=== PATIENT | female | born 1935 | race Caucasian/White ===

== ENCOUNTER 2022-09-30 15:44 | Emergency (ER) | payer OTHER, SELFPAY ==
[2022-09-30 16:17] VITALS: BP 138/72; PULSE 89; RESP 17; TEMP 36.6; O2SAT 97
--- NOTE | 2022-09-30 16:21 | PC.NURSE ---
called facility to relay that we do not start PICC lines in the ED. facility requesting peripheral access to finish IV medications.
--- NOTE | 2022-09-30 17:03 | ED.GENADULT ---
HPI - General Adult General Chief complaint: Unspecified Stated complaint: PICC line issues Time Seen by Provider: 09/30/22 15:46 History of Present Illness HPI narrative: Patient is an 87-year-old female who presents ER for a IV placement. It was reported by the [facility] the patient requires a PICC line. Patient is currently receiving some cefepime and vancomycin for bacteremia of clostridia that she had recently. Patient has no new fevers. There is no complaints other than that her current PICC line is not functioning. Upon arrival it appears patient actually just has a peripherally inserted IV in her right arm. Related Data Home Medications Medication Instructions Recorded Confirmed ferrous sulfate 325 mg PO BID 09/12/22 09/12/22 Adults Multivitamin 1 tablet PO DAILY 09/14/22 09/14/22 PreserVision AREDS 2 cap PO DAILY 09/14/22 09/14/22 Procardia XL 90 mg PO QHS 09/14/22 09/14/22 Synthroid 88 mcg PO DAILY 09/14/22 09/14/22 hydralazine 50 mg PO TID 09/14/22 09/14/22 losartan 100 mg PO DAILY 09/14/22 09/14/22 Allergies Allergy/AdvReac Type Severity Reaction Status Date / Time adhesive tape Allergy Itching Verified 09/11/22 20:05 bacitracin Allergy Unknown Verified 09/11/22 20:08 [From Neosporin ([id number])] codeine Allergy Anaphylaxis Verified 09/11/22 20:04 gabapentin Allergy Unknown Verified 09/11/22 20:06 levofloxacin [From Levaquin] Allergy Unknown Verified 09/11/22 20:07 neomycin Allergy Unknown Verified 09/11/22 20:08 [From Neosporin ([id number])] polymyxin B Allergy Unknown Verified 09/11/22 20:08 [From Neosporin ([id number])] Sulfa (Sulfonamide Allergy Unknown Verified 09/11/22 20:08 Antibiotics) Review of Systems Review of Systems: ROS unobtainable: Yes unobtainable due to mental status PMFSH Past Medical History Medical History (Updated 09/30/22 @ 17:08 by Dennis Connell MD) Bacteremia Dementia Fall Hypertension Hypothyroidism Intra-articular fracture of distal end of left radius with volar angulation with routine healing Nondisplaced fracture of pelvis Family History Family History (Updated 09/12/22 @ 00:50 by Briana Puckett RN) Other Unknown family medical history Social History Social History Smoking status: Never smoker Second hand tobacco smoke exposure: No Alcohol intake: never Substance use: never Substance use type: does not use Spiritual care concerns: Yes (Christian) Exam Narrative: GENERAL: Well-appearing, well-nourished, and in no acute distress. HEAD: Normocephalic, atraumatic. EYES: PERRL and EOMI. CHEST: Clear to auscultation. No respiratory distress. HEART: Regular rate and rhythm. Normal peripheral pulses. ABDOMEN: Soft, nontender, nondistended. EXTREMITIES: Normal range of motion. No edema. NEURO: Alert and oriented x2. PSYCH: Normal mood and affect. Course Course Emergency Course: A peripheral IV has been placed in the patient's right AC and she will be discharged back to her [facility]. They have been made aware that the ER does not place picklines and that they can contact a clinical service who can come to the [facility] and placed a IV if required. Vital Signs Vital signs: Vital Signs Temperature 97.8 F 09/30/22 16:17 Pulse Rate 89 09/30/22 16:17 Respiratory Rate 17 09/30/22 16:17 Blood Pressure 138/72 09/30/22 16:17 Pulse Oximetry 97 09/30/22 16:17 Oxygen Delivery Room Air 09/30/22 16:17 Temperature 97.8 F 09/30/22 16:17 Pulse Rate 89 09/30/22 16:17 Respiratory Rate 17 09/30/22 16:17 Blood Pressure 138/72 09/30/22 16:17 Pulse Oximetry 97 09/30/22 16:17 Oxygen Delivery Room Air 09/30/22 16:17 Medical Decision Making Vital Signs Vital Signs: Vital Signs Temperature 97.8 F 09/30/22 16:17 Pulse Rate 89 09/30/22 16:17 Respiratory Rate 17 09/30/22
[2022-09-30 18:55] VITALS: BP 142/85; PULSE 87; RESP 18; O2SAT 98
== END 2022-09-30 18:57 ==
LOC: ANHED 17:41
PROVIDERS: Emergency Provider Emergency Medicine; PCP Nurse Practitioner Family
DX: Z45.2 Encounter for adjustment and management of vascular access device (principal); R78.81 Bacteremia; B96.7 Clostridium perfringens [C. perfringens] as the cause of diseases classified elsewhere
CPT/HCPCS: 99281

== ENCOUNTER 2022-12-09 05:07 | Inpatient (IN) | payer MEDICARE, OTHER, SELFPAY ==
[2022-12-09] VITALS (7 sets, daily range): BP systolic 140–174; BP diastolic 58–90; PULSE 97–112; RESP 13–20; TEMP 36.2–37.4; O2SAT 97–100; BMI 26.9
--- NOTE | ~2022-12-09 | CT_ITS ---
Clinical Indication: Hemorrhage CT Scan of the Chest, Abdomen, and Pelvis without Contrast: Technique: Contiguous sections were acquired throughout the chest, abdomen, and pelvis without IV con trast administration. Dose reduction technique was used on this scan by utilizing automated exposure control and iterative reconstruction technique. The dose-length product (DLP) was 1118.45 mGy-cm. Findings: There is no evidence of any significant mediastinal, hilar or axillary lymphadenopathy. The mediastin al soft tissues appear normal. No pericardial effusion. Probable minimal bilateral pleural effusions and minimal bibasilar atelectatic change. The liver, spleen, pancreas, and adrenal glands are within normal limits. Gallbladder is markedly dis tended, multiple gallstones, but no definite wall thickening or inflammatory change. Probable bilater al renal cysts present. There are atherosclerotic calcifications of the aorta. No lymphadenopathy. There is prominent stool at the rectum, suggestive of fecal impaction. There is additional moderate t o large amount stool throughout large bowel. No bowel obstruction. No abscess or free air evident. No evidence for intra-abdominal hemorrhage. Urinary bladder is unremarkable. No adnexal mass seen. No ascites. Impression: No intra-abdominal hemorrhage. Fecal impaction and constipation. Cholelithiasis and distended gallbladder. Minimal pleural effusions and minimal bibasilar atelectatic change. Reviewed, dictated and finalized at [facility]. Impression: No intra-abdominal hemorrhage. Fecal impaction and constipation. Cholelithiasis and distended gallbladder. Minimal pleural effusions and minimal bibasilar atelectatic change.
--- NOTE | ~2022-12-09 | XR_ITS ---
Portable chest x-ray Comparison: None Clinical History: Fever Findings: Lungs are clear, without focal consolidation or pleural effusion. Cardiomediastinal silho uette is stable. Right shoulder arthroplasty noted. Impression: Clear lungs. Reviewed, dictated and finalized at location . Impression: Clear lungs.
--- NOTE | ~2022-12-09 | CT_ITS ---
CT head without contrast Indication: Altered mental status Technique: Serial scans were obtained through the brain without the administration of contrast. Dose reduction technique was used on this scan by utilizing automated exposure control and iterative recon struction technique. The dose-length product (DLP) was 605.33 mGy-cm. Findings: There is no evidence of intracranial hemorrhage, mass lesion, or acute infarct. The ventri cles and subarachnoid spaces are dilated, consistent with mild atrophy. There is no evidence of darryn a, mass effect or midline shift. The visualized paranasal sinuses and mastoid air cells are clear. Impression: No intracranial hemorrhage, mass, or acute infarct. Mild generalized atrophy. Reviewed, dictated and finalized at location . Impression: No intracranial hemorrhage, mass, or acute infarct. Mild generalized atrophy.
--- NOTE | 2022-12-09 05:14 | ECG_ITS ---
Measurements Intervals [place] Rate: 103 P: 75 PA: 126 QRS: 52 QRSD: 81 T: 69 QT: 327 QTc: 429 Interpretive Statements SINUS TACHYCARDIA POSSIBLE LEFT ATRIAL ENLARGEMENT BASELINE ARTIFACT- I, II, III, AVR, AVL, AVF, V1-V6 BORDERLINE ECG NO PREVIOUS ECG AVAILABLE FOR COMPARISON Electronically Signed On 12-09-2022 6:38:58 CDT by Yair Richmond D.O.
--- NOTE | 2022-12-09 05:16 | ED.GENADULT ---
HPI - General Adult General Chief complaint: Recheck/Abnormal Lab/Rx Stated complaint: high blood pressure/Fever History of Present Illness HPI narrative: this is an 87-year-old female presenting to the ED from the care home for chief complaint of fever and elevated blood pressures. The patient herself is A&O x1-2. The care home states her blood pressure was 220/120 and had a temperature of 100.2? The patient says she has a small headache and some shortness of breath but no fever, coughs abdominal pain. Related Data Home Medications Medication Instructions Recorded Confirmed ferrous sulfate 325 mg PO BID 09/12/22 11/25/22 Adults Multivitamin 1 tablet PO DAILY 09/14/22 11/25/22 PreserVision AREDS 2 cap PO DAILY 09/14/22 11/25/22 Procardia XL 90 mg PO QHS 09/14/22 11/25/22 Synthroid 88 mcg PO DAILY 09/14/22 11/25/22 hydralazine 50 mg PO TID 09/14/22 11/25/22 losartan 100 mg PO DAILY 09/14/22 11/25/22 Allergies Allergy/AdvReac Type Severity Reaction Status Date / Time adhesive tape Allergy Itching Verified 12/09/22 06:17 bacitracin Allergy Unknown Verified 12/09/22 06:17 [From Neosporin ([id number])] codeine Allergy Anaphylaxis Verified 12/09/22 06:17 gabapentin Allergy Unknown Verified 12/09/22 06:17 levofloxacin [From Levaquin] Allergy Unknown Verified 12/09/22 06:17 neomycin Allergy Unknown Verified 12/09/22 06:17 [From Neosporin ([id number])] polymyxin B Allergy Unknown Verified 12/09/22 06:17 [From Neosporin ([id number])] Sulfa (Sulfonamide Allergy Unknown Verified 12/09/22 06:17 Antibiotics) PMFSH Past Medical History Medical History Bacteremia Dementia Fall Hypertension Hypothyroidism Intra-articular fracture of distal end of left radius with volar angulation with routine healing Nondisplaced fracture of pelvis Family History Family History Other Unknown family medical history Social History Social History Smoking status: Never smoker Second hand tobacco smoke exposure: No Alcohol intake: never Substance use: never Substance use type: does not use Spiritual care concerns: Yes (Hinduism) Exam Narrative: APPEARANCE: No apparent distress. A&O x1-2. Very hard of hearing. Head: atraumatic. EYES: EOMI, AMEE NOSE: Atraumatic NECK: Trachea midline RESPIRATORY: No increased rate of breathing , bibasilar crackles CARDIOVASCULAR: tachycardic, no peripheral edema ABDOMINAL: Non-distended, soft no guarding or rebound MUSCULOSKELETAl: No obvious deformities NEURO: Alert. moves 4 of 4 extremities SKIN:: stage I decubitus ulcer PSYCHIATRIC: Normal affect Course Vital Signs Vital signs: Vital Signs Temperature 98 F 12/09/22 05:09 Pulse Rate 112 H 12/09/22 05:09 Respiratory Rate 19 12/09/22 05:09 Blood Pressure 152/90 H 12/09/22 05:09 Pulse Oximetry 97 12/09/22 05:09 Temperature 98 F 12/09/22 05:09 Pulse Rate 112 H 12/09/22 05:09 Respiratory Rate 19 12/09/22 05:09 Blood Pressure 152/90 H 12/09/22 05:09 Pulse Oximetry 97 12/09/22 05:09 Medical Decision Making [facility] Narrative Medical decision making narrative: -Presentation: 87-year-old female presenting from the care home with reports of fever and elevated blood pressure. Patient feels warm to touch but is afebrile on oral. She is tachycardic and has poor baseline mental status not able to give us much information. Sepsis workup ordered -DDX includes but is not limited to: Sepsis, UTI, pneumonia, dehydration, bacteremia, intracranial hemorrhage, dementia, sundowning -Co-morbidities complicating care: dementia, anemia, hypothyroid, hypertension -Social determinants of health: care home resident -External Chart Review: review of care home paperwo
[2022-12-09 05:39] LABS: Appearance Urine Clear (Clear); Bilirubin Urine Negative (Negative); Blood Urine Trace-intact (Negative); Color Urine Yellow (Yellow); Glucose Urine UA Negative (Negative); Ketones Urine Negative (Negative); Leukocyte Esterase Ur 2+ LEU/UL (Negative); Nitrate Urine Positive (Negative); Protein Urine 1+ mg/dL (Negative); Specific Grav Ur 1.015 (1.001-1.035); Urobilinogen Urine 0.2 mg/dL (<2.0)
[2022-12-09 05:42] LABS: Bacteria Urine 4+ /hpf; Non Pathogenic Casts 0-2; RBC Urine 0-2 /hpf (0-2); Squamous Epithelial Cell Urine Occasional /hpf (Few); WBC Urine 51-100 /hpf
[2022-12-09 06:15] LABS: Add Urine Microscopic? YES
[2022-12-09 06:16] LABS: Influenza A QL RT-PCR Negative (Negative); Influenza B QL RT-PCR Negative (Negative); RSV RNA, RT-PCR Negative (Negative); SARS-CoV-2 RNA PCR Negative (Negative)
[2022-12-09] MEDS: SODIUM CHLORIDE 0.9% IV 1,000 ML 999 ML IV CONT (06:21)
[2022-12-09 06:26] LABS: Lactic Acid Reflex 1.2 mmol/L (0.7-2.0)
[2022-12-09 06:28] LABS: Alanine Aminotransferase 27 U/L (6-35); Albumin Level 3.3 g/dL (3.5-5.1); Alkaline Phosphatase 117 U/L (38-126); Anion Gap 8 mmol/L (8-16); Aspartate Amino Transferase 29 U/L (14-36); Bilirubin,Total 0.3 mg/dL (0.2-1.3); Blood Urea Nitrogen 45 mg/dL (7-17); Carbon Dioxide 23 mmol/L (22-30); Chloride 110 mmol/L (98-107); Creatine Kinase 42 U/L (30-135); Estimated CRCL calculation 21 ml/min; Estimated Glomerular Filt Rate 30; Glucose 104 mg/dL (65-110); Lipase 97 U/L (23-300); Phosphorus 3.6 mg/dL (2.5-4.5); Potassium 4.3 mmol/L (3.4-5.0); Prothrombin Time 13.5 Seconds (11.1-14.7); Sodium 141 mmol/L (137-145)
[2022-12-09 06:29] LABS: Partial Thromboplastin Time 32.4 SECONDS (22.3-36.8)
[2022-12-09 06:39] LABS: Troponin I 0.023 ng/mL (0.000-0.034)
[2022-12-09 06:40] LABS: NT Pro B Type Natriuretic Pept 800 pg/mL (19.9-100)
[2022-12-09 06:48] LABS: Basophils Percent Auto 0.4 % (0.2-1.2); Eosinophils Absolute Auto 0.2 K/mm3 (0-0.3); Eosinophils Percent Auto 2.1 % (0-4.4); Hematocrit 28.9 % (37.0-47.0); Immature Granulocyte Absolute 0.03 K/mm3 (0.00-0.031); Immature Granulocyte Percent A 0.3 % (0-0.5); Lymphocytes Absolute Auto 1.65 K/mm3 (0.9-3.2); Lymphocytes Percent Auto 17.1 % (18.3-44.2); Mean Corpuscular HGB Conc 31.1 g/dl (32-36); Mean Corpuscular Hemoglobin 30.4 pg (26-34); Mean Corpuscular Volume 97.6 fl (80-100); Mean Platelet Volume 9.9 fl (7.4-10.4); Monocytes Absolute Auto 0.7 K/mm3 (0.1-0.6); Monocytes Percent Auto 7.5 % (2.6-8.5); Neutrophils Percent Auto 72.6 % (45.5-73.1); Platelet Count Result 415 k/mm3 (150-375); Red Blood Count 2.96 M/mm3 (4.2-5.4); Red Cell Distribution Width 12.8 % (11.5-14.5); White Blood Count 9.7 K/mm3 (4.5-10.0)
[2022-12-09] MEDS: ERTAPENEM 1 GM/NS 50 ML 1 GM/50 ML BAG IVPB (07:31)
[2022-12-09 08:03] LABS: Free T4 Free Thyroxine Reflex 1.27 ng/dL (0.78-2.19)
--- NOTE | 2022-12-09 08:25 | ADMGEN ---
This patient, Alva Paulson, was admitted to [facility] Surg Room 332-02. Patient/family oriented to hospital policies and general routines including ID bracelet, bed and alarms, visiting hours, pain management, procedures, bathroom and other care routines, personal items, smoking policy, room service/diet, and visiting hours. Information on how to activate the Rapid Response Team has been discussed. Patient/Family are encouraged to report perceived risks to care and to ask questions if they do not understand what they are told or what they should do.
[2022-12-09 08:53] LABS: Total Triiodothyronine (T3) 1.06 NG/ML (0.97-1.69)
[2022-12-09 09:41] LABS: Troponin I 0.023 ng/mL (0.000-0.034)
[2022-12-09] MEDS: SILVERGEL (ELTA) 45 ML 1 APPLIC TOPICAL (13:48)
--- NOTE | 2022-12-09 14:31 | PM.IMHP ---
H&P: HPI History of Present Illness Date/Time: 12/09/22 14:35 Chief Complaint: Fever and high blood pressure. Narrative: This is an 87-year-old female with history of dementia, hypertension, hyperlipidemia, hypothyroidism, and ESBL E coli urinary tract infection who presented to the emergency department via EMS for evaluation of fever and high blood pressure. The patient is very hard of hearing but is able to provide a pretty good history. Some of the following is supplemented via a review of her EMR. This morning she spiked a temperature to 100.2? F and her blood pressure was reportedly 220/120 and she was sent in for evaluation. On arrival she reported having a mild headache and perhaps some shortness of breath but nothing significant. Blood pressures since arrival have been in the 150s to 160 systolic and she has been afebrile. She is tachycardic with heart rates in the low 100s. Pertinent labs include a WBC count of 9.7, hemoglobin 9.0, normal electrolytes, BUN 45, creatinine 1.60, lactic acid 1.2, proBNP 800, troponin 0.023. UA was positive for nitrates, 2+ leukocyte esterase, 4+ bacteria, and 51 to 100 WBC. She was negative for influenza, RSV, and COVID. Brain CT and chest x-ray did not show any acute findings. She was given a dose of ertapenem in the ED given reported history of ESBL E coli in the urine and she is being admitted in this setting. At the time my evaluation she is resting comfortably and watching television and has no complaints. Review of Systems Review of Systems: Reviewed and are negative. [facility] Past Medical History Medical History (Updated 12/09/22 @ 23:17 by Janelle Tatum PA-C) Arthritis Benign essential tremor Chronic anemia Chronic kidney disease Stage 3 to 4, baseline creatinine is about 1.60. Dementia History of ESBL E. coli infection Hyperlipidemia Hypertension Hypothyroidism Surgical History Surgical History (Updated 12/09/22 @ 14:36 by Janelle Tatum PA-C) History of arthroplasty of right shoulder History of tonsillectomy and adenoidectomy Family History Family History Father Cardiac abnormality Daughter Atrial fibrillation Social History Social History (Updated 12/09/22 @ 14:37 by Janelle Tatum PA-C) Social History: Healthcare power of cost estimating engineer: Eneida Conner, daughter. Code status: Full code. Smoking status: Never smoker Second hand tobacco smoke exposure: No Alcohol intake: never Substance use: never Substance use type: does not use Additional living arrangements comments: [facility]. Spiritual care concerns: No Meds Home Medications and Allergies Home Medications Medication Instructions Recorded Confirmed Type ferrous sulfate 325 mg PO BID 09/12/22 12/09/22 History Adults Multivitamin 1 tablet PO DAILY 09/14/22 12/09/22 History PreserVision AREDS 2 cap PO DAILY 09/14/22 12/09/22 History Procardia XL 90 mg PO DAILY 09/14/22 12/09/22 History Synthroid 88 mcg PO DAILY 09/14/22 12/09/22 History hydralazine 50 mg PO 08,,09/14/22 12/09/22 History losartan 100 mg PO DAILY 09/14/22 12/09/22 History acetaminophen 325 mg tablet (Mapap 650 mg PO Q6H PRN Mild Pain (1-3) 09/27/22 12/09/22 Rx (acetaminophen)) Or Fever #30 tabs docusate sodium 100 mg capsule 100 mg PO Q12HR #60 caps 09/27/22 12/09/22 Rx polyethylene glycol 3350 17 gram 17 g PO QAM PRN Constipation #100 09/27/22 12/09/22 Rx oral powder packet (Miralax) ea psyllium husk (with sugar) 3.4 1 packet PO Q12HR #60 ea 09/27/22 12/09/22 Rx gram oral powder packet (Metamucil (with sugar)) collagenase clostridium histo. 250 1 applic topical DAILY 12/09/22 12/09/22 History unit/gram topical ointment (Santyl) levothyroxine 88 mcg tablet 88 mcg PO WEEKLY 12/09/22 12/09/22 History (Synthroid) primidone 50 mg tablet 50 mg PO Q12H 12/09/22 12/09/22 History Allergies Allergy/AdvReac Type Severity
[2022-12-09] MEDS: SODIUM CHLORIDE 0.9% IV 500 ML 75 ML IV CONT (15:52)
[2022-12-09] MEDS: FERROUS SULFATE 324 MG TABLET PO (17:26)
[2022-12-09] MEDS: PRIMIDONE 50 MG TABLET PO (20:28)
[2022-12-09] MEDS: hydrALAZINE HCL 50 MG TABLET PO (20:28)
[2022-12-09] MEDS: PSYLLIUM POWDER PACKET 1 PACKET PO (20:28)
[2022-12-10] MEDS: LEVOTHYROXINE SODIUM 88 MCG TABLET PO (05:53)
[2022-12-10 06:00] VITALS: BP 141/79; PULSE 88; RESP 18; TEMP 35.8; O2SAT 96
[2022-12-10 06:13] LABS: Mean Corpuscular HGB Conc 30.8 g/dl (32-36); Mean Corpuscular Hemoglobin 30.4 pg (26-34); Mean Corpuscular Volume 98.9 fl (80-100); Mean Platelet Volume 9.8 fl (7.4-10.4); Platelet Count Result 365 k/mm3 (150-375); Red Blood Count 2.63 M/mm3 (4.2-5.4); Red Cell Distribution Width 12.8 % (11.5-14.5); White Blood Count 6.2 K/mm3 (4.5-10.0)
[2022-12-10] MEDS: hydrALAZINE HCL 50 MG TABLET PO ×3 (08:19→20:23)
[2022-12-10] MEDS: OPTI-GEN TAB 2 TABLET PO (08:19)
[2022-12-10] MEDS: FERROUS SULFATE 324 MG TABLET PO ×2 (08:19→17:40)
[2022-12-10] MEDS: NIFEdipine 30 MG TAB.ER.24 90 MG PO (08:19)
[2022-12-10] MEDS: PRIMIDONE 50 MG TABLET PO ×2 (08:19→20:22)
[2022-12-10] MEDS: MULTIVITAMINS THERAPEUTIC TAB (*BKC) 1 TABLET PO (08:19)
[2022-12-10] MEDS: LOSARTAN POTASSIUM 100 MG TABLET PO (08:19)
[2022-12-10] MEDS: PSYLLIUM POWDER PACKET 1 PACKET PO (08:20)
[2022-12-10] MEDS: ENOXAPARIN 30 MG/0.3 ML SYRINGE SUB-Q (08:20)
[2022-12-10] MEDS: SILVERGEL (ELTA) 45 ML 1 APPLIC TOPICAL (08:20)
[2022-12-10] MEDS: COLLAGENASE OINT 30 GM TUBE 1 APPLIC TOPICAL (08:59)
--- NOTE | 2022-12-10 09:55 | PM.IMPN ---
Progress Note: A&P Assessment and Plan (1) Fever: Code(s): R50.9 - Fever, unspecified Status: Acute (2) Urinary tract infection: Code(s): N39.0 - Urinary tract infection, site not specified Status: Acute (3) Chronic anemia: Code(s): D64.9 - Anemia, unspecified Status: Acute (4) Chronic kidney disease: Code(s): N18.9 - Chronic kidney disease, unspecified Status: Acute (5) Hypertension: Code(s): I10 - Essential (primary) hypertension Status: Acute (6) Hypothyroidism: Code(s): E03.9 - Hypothyroidism, unspecified Status: Acute (7) Dementia: Code(s): F03.90 - Unspecified dementia, unspecified severity, without behavioral disturbance, psychotic disturbance, mood disturbance, and anxiety Status: Acute Plan Sepsis The patient presented to the emergency department via EMS for evaluation of elevated blood pressure and fever as per HPI. Labs, imaging, EKG, and all reports were personally reviewed. She has been afebrile since arrival and her white blood cell count and lactic acid level are well within normal limits. Her urinalysis is abnormal and given her fever she has been started on empiric antibiotics. She has a history of E coli ESBL UTI and she received a dose of ertapenem in the ED. Started ceftriaxone, UTI UA shows pyuria Antibiotics see above Follow U? Chronic anemia and renal failure No obvious bleeding stable on review of previous labs. Blood pressures have been a bit elevated but not significantly so. Continue antihypertensives and monitor closely. TSH within normal limits. Bacteremia Blood culture positive for for Gram-positive cocci in cluster Add vancomycin IV, will deescalate based on the blood culture Repeat blood cultures again today Subjective Date/time seen: 12/10/22 09:55 Interval history: I saw on exam patient today, patient feels generally weak. Denies focal weakness. No new issue even overnight, blood culture grows Gram-positive cocci in cluster Exam Narrative: GENERAL: Pleasant, in no acute distress. Well-nourished. - EYES: EOMI. Anicteric. - HENT: Moist mucous membranes. - LUNGS: Clear to auscultation bilaterally, no wheezing, rhonchi, or rales. - CARDIOVASCULAR: Regular rate and rhythm. No murmur. No JVD. - ABDOMEN: Soft, non-tender and non-distended. No palpable masses. - EXTREMITIES: General weakness no edema. Peripheral pulses 2+. Non-tender. - NEUROLOGIC: No focal neurological deficits. CN II-XII grossly intact. - PSYCHIATRIC: Awake, Alert and oriented x 3. Appropriate mood and affect. - SKIN: No rashes or lesions. Warm. - LYMPH: No cervical lymphadenopathy. Objective Data Vital Signs Vital Signs: Vital Signs - 24 hr 12/09/22 14:00 12/09/22 20:00 12/09/22 22:00 Temperature 99.3 F 97.1 F L Pulse Rate 105 H 97 Respiratory Rate 16 20 Blood Pressure 143/72 H 140/58 L Pulse Oximetry 98 99 Oxygen Delivery Room Air 12/10/22 06:00 12/10/22 08:20 Temperature 96.4 F L Pulse Rate 88 Respiratory Rate 18 Blood Pressure 141/79 H Pulse Oximetry 96 Oxygen Delivery Room Air Intake/Output Intake/Output: Intake & Output 12/07/22 12/08/22 12/09/22 12/10/22 23:59 23:59 23:59 23:59 Intake Total 2210 Balance 2210 Meds/Results Medications: Active Medications Generic Name Dose Route Start Last Admin Trade Name Freq PRN Reason Stop Dose Admin Acetaminophen 650 mg 12/09/22 14:44 Acetaminophen 325 Mg Tablet PO Q6H PRN Mild Pain (1-3) or Fever Collagenase 1 applic 12/10/22 09:00 12/10/22 08:59 Collagenase Oint 30 Gm Tube TOPICAL 1 applic DAILY SOHAIL Administration Docusate Sodium 100 mg 12/09/22 21:00 12/10/22 08:13 Docusate Sodium 100 Mg Capsule PO Not Given Q12HR SOHAIL Enoxaparin Sodium 30 mg 12/10/22 09:00 12/10/22 08:20 Enoxaparin 30 Mg/0.3 Ml Syringe SUB-Q 30 mg DAILY SOHAIL Administration Ferrous
[2022-12-10] MEDS: VANCOMYCIN 1,000 MG/NS 250 ML 1,000 MG/250 ML BAG 250 MG IVPB (11:14)
[2022-12-10 11:40] LABS: Anion Gap 6 mmol/L (8-16); Blood Urea Nitrogen 38 mg/dL (7-17); Calcium 10.4 mg/dL (8.4-10.2); Carbon Dioxide 23 mmol/L (22-30); Chloride 110 mmol/L (98-107); Estimated CRCL calculation 26 ml/min; Estimated Glomerular Filt Rate 39; Glucose 95 mg/dL (65-110); Magnesium 1.9 mg/dL (1.6-2.3); Potassium 4.8 mmol/L (3.4-5.0); Sodium 139 mmol/L (137-145)
--- NOTE | 2022-12-10 13:24 | PC.NURSE ---
Pt is A&O1 female who has been resting for majority of the shift. Pt was compliant with medication. Medication is crushed and put in apple sauce or pudding. Pt had dressing changes done on heels and pt tolerated well. Pt had purewick placed to help prevent skin breakdown. Pt is a Q2 turn who tolerates repositioning well. Will continue to monitor pt.
[2022-12-10 14:00] VITALS: BP 137/60; PULSE 98; RESP 16; TEMP 36.7; O2SAT 99
[2022-12-10 20:00] VITALS: PULSE 109; RESP 20; O2SAT 96
[2022-12-10] MEDS: DOCUSATE SODIUM 100 MG CAPSULE PO (20:22)
[2022-12-10 20:24] VITALS: BP 129/65
[2022-12-10 21:25] VITALS: O2SAT 96
[2022-12-10 21:47] VITALS: BP 114/42; PULSE 109; RESP 20; TEMP 37.3; O2SAT 96
[2022-12-11] MEDS: LEVOTHYROXINE SODIUM 88 MCG TABLET PO (05:42)
[2022-12-11 06:00] VITALS: BP 140/79; PULSE 108; RESP 18; TEMP 37.1; O2SAT 99
[2022-12-11 06:40] LABS: Estimated CRCL calculation 26 ml/min; Estimated Glomerular Filt Rate 39
[2022-12-11 08:51] VITALS: PULSE 101; O2SAT 95
[2022-12-11] MEDS: PRIMIDONE 50 MG TABLET PO ×2 (09:04→20:09)
[2022-12-11] MEDS: OPTI-GEN TAB 2 TABLET PO (09:04)
[2022-12-11] MEDS: NIFEdipine 30 MG TAB.ER.24 90 MG PO (09:04)
[2022-12-11] MEDS: LOSARTAN POTASSIUM 100 MG TABLET PO (09:05)
[2022-12-11] MEDS: hydrALAZINE HCL 50 MG TABLET PO ×3 (09:05→20:09)
[2022-12-11] MEDS: MULTIVITAMINS THERAPEUTIC TAB (*BKC) 1 TABLET PO (09:05)
[2022-12-11] MEDS: FERROUS SULFATE 324 MG TABLET PO ×2 (09:05→16:31)
[2022-12-11] MEDS: ENOXAPARIN 30 MG/0.3 ML SYRINGE SUB-Q (09:05)
[2022-12-11] MEDS: PSYLLIUM POWDER PACKET 1 PACKET PO (09:05)
[2022-12-11] MEDS: COLLAGENASE OINT 30 GM TUBE 1 APPLIC TOPICAL (09:06)
[2022-12-11] MEDS: SILVERGEL (ELTA) 45 ML 1 APPLIC TOPICAL (09:06)
--- NOTE | 2022-12-11 13:19 | PC.NURSE ---
Pt is alert and oriented to self. Pt is resting in bed. Pt compliant with medication. Pt medications need to be crushed and given in applesauce or pudding. Pt compliant with turning and tolerates well. Pt expresses no needs and denies any pain when asked. Will continue to monitor pt.
[2022-12-11 14:00] VITALS: BP 132/56; PULSE 116; RESP 12; TEMP 36.7; O2SAT 98
--- NOTE | 2022-12-11 14:24 | PM.IMPN ---
Progress Note: A&P Assessment and Plan (1) Fever: Code(s): R50.9 - Fever, unspecified Status: Acute (2) Urinary tract infection: Code(s): N39.0 - Urinary tract infection, site not specified Status: Acute (3) Chronic anemia: Code(s): D64.9 - Anemia, unspecified Status: Acute (4) Chronic kidney disease: Code(s): N18.9 - Chronic kidney disease, unspecified Status: Acute (5) Hypertension: Code(s): I10 - Essential (primary) hypertension Status: Acute (6) Hypothyroidism: Code(s): E03.9 - Hypothyroidism, unspecified Status: Acute (7) Dementia: Code(s): F03.90 - Unspecified dementia, unspecified severity, without behavioral disturbance, psychotic disturbance, mood disturbance, and anxiety Status: Acute Plan Sepsis The patient presented to the emergency department via EMS for evaluation of elevated blood pressure and fever as per HPI. Labs, imaging, EKG, and all reports were personally reviewed. She has been afebrile since arrival and her white blood cell count and lactic acid level are well within normal limits. Her urinalysis is abnormal and given her fever she has been started on empiric antibiotics. She has a history of E coli ESBL UTI and she received a dose of ertapenem in the ED. Started ceftriaxone, UTI UA shows pyuria Antibiotics see above Urine culture is pending Chronic anemia and renal failure No obvious bleeding stable on review of previous labs. Blood pressures have been a bit elevated but not significantly so. Continue antihypertensives and monitor closely. TSH within normal limits. Bacteremia Blood culture positive for for Staphylococcus epidermidis and hominis Discontinue vancomycin IV, continue ceftriaxone Repeated blood cultures pending report Subjective Date/time seen: 12/11/22 14:24 Interval history: I saw on exam patient today, patient feels generally weak. Denies focal weakness. No new issue even overnight, blood culture grows Staphylococcus epidermidis and hominis. Patient is afebrile Exam Narrative: GENERAL: in no acute distress. Lethargic - EYES: EOMI. Anicteric. - HENT: Moist mucous membranes. - LUNGS: Clear to auscultation bilaterally, no wheezing, rhonchi, or rales. - CARDIOVASCULAR: Regular rate and rhythm. No murmur. No JVD. - ABDOMEN: Soft, non-tender and non-distended. No palpable masses. - EXTREMITIES: General weakness no edema. Peripheral pulses 2+. Non-tender. - NEUROLOGIC: No focal neurological deficits. CN II-XII grossly intact. - PSYCHIATRIC: Awake, Alert and oriented x 3. Appropriate mood and affect. - SKIN: No rashes or lesions. Warm. - LYMPH: No cervical lymphadenopathy. Objective Data Vital Signs Vital Signs: Vital Signs - 24 hr 12/10/22 20:24 12/10/22 21:47 12/10/22 20:00 Temperature 99.2 F Pulse Rate 109 H 109 H Respiratory Rate 20 20 Blood Pressure 129/65 114/42 L Pulse Oximetry 96 96 Oxygen Delivery Room Air 12/10/22 21:25 12/11/22 06:00 12/11/22 08:51 Temperature 98.8 F Pulse Rate 108 H 101 H Respiratory Rate 18 Blood Pressure 140/79 Pulse Oximetry 96 99 95 Oxygen Delivery Room Air Room Air 12/11/22 09:28 12/11/22 14:00 Temperature 98.0 F Pulse Rate 116 H Respiratory Rate 12 Blood Pressure 132/56 L Pulse Oximetry 98 Oxygen Delivery Room Air Intake/Output Intake/Output: Intake & Output 12/08/22 12/09/22 12/10/22 12/11/22 23:59 23:59 23:59 23:59 Intake Total 2210 1124 115 Output Total 450 500 Balance 2210 674 -385 Meds/Results Medications: Active Medications Generic Name Dose Route Start Last Admin Trade Name Freq PRN Reason Stop Dose Admin Acetaminophen 650 mg 12/09/22 14:44 Acetaminophen 325 Mg Tablet PO Q6H PRN Mild Pain (1-3) or Fever Collagenase 1 applic 12/10/22 09:00 12/11/22 09:06 Collagenase Oint 30 Gm Tube TOPICAL 1 applic DAILY [facility] Administratio
[2022-12-11] MEDS: ACETAMINOPHEN 325 MG TABLET 650 MG PO (17:44)
[2022-12-11] MEDS: DOCUSATE SODIUM 100 MG CAPSULE PO (20:09)
[2022-12-11 21:47] VITALS: BP 133/46; RESP 16; TEMP 36.8; O2SAT 97
[2022-12-12 05:58] VITALS: BP 137/58; PULSE 103; RESP 12; TEMP 36.8; O2SAT 97
[2022-12-12] MEDS: LEVOTHYROXINE SODIUM 88 MCG TABLET PO (06:04)
--- NOTE | 2022-12-12 09:36 | PCSTNOTE ---
Please refer to the Bedside Swallow Evaluation in the EMR. Please note, silent aspiration cannot be ruled out at bedside.
[2022-12-12] MEDS: FERROUS SULFATE LIQUID 325 MG/7.4 ML ELIXIR PO ×2 (09:43→17:42)
[2022-12-12] MEDS: hydrALAZINE HCL 50 MG TABLET PO ×3 (09:44→20:23)
[2022-12-12] MEDS: COLLAGENASE OINT 30 GM TUBE 1 APPLIC TOPICAL (09:45)
[2022-12-12] MEDS: DOCUSATE SODIUM LIQ 100 MG/10 ML UDC PO ×2 (09:45→20:23)
[2022-12-12] MEDS: amLODIPine BESYLATE 5 MG TABLET 10 MG PO (09:45)
[2022-12-12] MEDS: ENOXAPARIN 30 MG/0.3 ML SYRINGE SUB-Q (09:45)
[2022-12-12] MEDS: PSYLLIUM POWDER PACKET 1 PACKET PO ×2 (09:46→20:25)
[2022-12-12] MEDS: PRIMIDONE 50 MG TABLET PO ×2 (09:46→20:24)
[2022-12-12] MEDS: LOSARTAN POTASSIUM 100 MG TABLET PO (09:46)
[2022-12-12] MEDS: SILVERGEL (ELTA) 45 ML 1 APPLIC TOPICAL (09:46)
[2022-12-12] MEDS: MULTIVITAMINS THERAPEUTIC TAB (*BKC) 1 TABLET PO (09:46)
[2022-12-12] MEDS: OPTI-GEN TAB 2 TABLET PO (09:46)
[2022-12-12 11:00] LABS: Basophils Percent Auto 0.3 % (0.2-1.2); Eosinophils Absolute Auto 0.1 K/mm3 (0-0.3); Eosinophils Percent Auto 0.8 % (0-4.4); Hematocrit 25.9 % (37.0-47.0); Immature Granulocyte Absolute 0.04 K/mm3 (0.00-0.031); Immature Granulocyte Percent A 0.4 % (0-0.5); Lymphocytes Absolute Auto 1.14 K/mm3 (0.9-3.2); Lymphocytes Percent Auto 11.5 % (18.3-44.2); Mean Corpuscular HGB Conc 30.9 g/dl (32-36); Mean Corpuscular Hemoglobin 30.4 pg (26-34); Mean Corpuscular Volume 98.5 fl (80-100); Mean Platelet Volume 9.7 fl (7.4-10.4); Monocytes Absolute Auto 0.8 K/mm3 (0.1-0.6); Monocytes Percent Auto 8.1 % (2.6-8.5); Neutrophils Absolute Auto 7.8 K/mm3 (1.3-6.7); Neutrophils Percent Auto 78.9 % (45.5-73.1); Platelet Count Result 390 k/mm3 (150-375); Red Blood Count 2.63 M/mm3 (4.2-5.4); Red Cell Distribution Width 12.9 % (11.5-14.5); White Blood Count 9.9 K/mm3 (4.5-10.0)
[2022-12-12 11:28] LABS: Alanine Aminotransferase 52 U/L (6-35); Albumin Level 3.3 g/dL (3.5-5.1); Alkaline Phosphatase 105 U/L (38-126); Anion Gap 4 mmol/L (8-16); Aspartate Amino Transferase 48 U/L (14-36); Bilirubin,Total 0.2 mg/dL (0.2-1.3); Blood Urea Nitrogen 54 mg/dL (7-17); Carbon Dioxide 25 mmol/L (22-30); Chloride 105 mmol/L (98-107); Estimated CRCL calculation 24 ml/min; Estimated Glomerular Filt Rate 36; Glucose 128 mg/dL (65-110); Potassium 4.7 mmol/L (3.4-5.0); Sodium 134 mmol/L (137-145)
[2022-12-12 14:00] VITALS: BP 115/64; PULSE 112; RESP 14; TEMP 37.3; O2SAT 97
--- NOTE | 2022-12-12 14:36 | PM.IMPN ---
Progress Note: A&P Assessment and Plan (1) Fever: Code(s): R50.9 - Fever, unspecified Status: Acute (2) Urinary tract infection: Code(s): N39.0 - Urinary tract infection, site not specified Status: Acute (3) Chronic anemia: Code(s): D64.9 - Anemia, unspecified Status: Acute (4) Chronic kidney disease: Code(s): N18.9 - Chronic kidney disease, unspecified Status: Acute (5) Hypertension: Code(s): I10 - Essential (primary) hypertension Status: Acute (6) Hypothyroidism: Code(s): E03.9 - Hypothyroidism, unspecified Status: Acute (7) Dementia: Code(s): F03.90 - Unspecified dementia, unspecified severity, without behavioral disturbance, psychotic disturbance, mood disturbance, and anxiety Status: Acute Plan Sepsis The patient presented to the emergency department via EMS for evaluation of elevated blood pressure and fever as per HPI. Labs, imaging, EKG, and all reports were personally reviewed. She has been afebrile since arrival and her white blood cell count and lactic acid level are well within normal limits. Her urinalysis is abnormal and given her fever she has been started on empiric antibiotics. She has a history of E coli ESBL UTI and she received a dose of ertapenem in the ED. Started ceftriaxone, UTI UA shows pyuria Urine culture grows Klebsiella pneumoniae and E coli also susceptible to ceftriaxone Continue ceftriaxone IV Chronic anemia and renal failure No obvious bleeding stable on review of previous labs. Blood pressures have been a bit elevated but not significantly so. Continue antihypertensives and monitor closely. TSH within normal limits. Bacteremia Blood culture positive for for Staphylococcus epidermidis and hominis Discontinue vancomycin IV, continue ceftriaxone Repeated blood cultures no growth so far, pending final report Subjective Date/time seen: 12/12/22 14:36 Interval history: I saw on exam patient today, patient feels generally weak. Denies focal weakness. No new issue even overnight, Patient is afebrile. Per speech therapy's evaluation, patient is able to tolerate a pureed diet Exam Narrative: GENERAL: in no acute distress. Lethargic - EYES: EOMI. Anicteric. - HENT: Moist mucous membranes. - LUNGS: Clear to auscultation bilaterally, no wheezing, rhonchi, or rales. - CARDIOVASCULAR: Regular rate and rhythm. No murmur. No JVD. - ABDOMEN: Soft, non-tender and non-distended. No palpable masses. - EXTREMITIES: General weakness no edema. Peripheral pulses 2+. Non-tender. - NEUROLOGIC: No focal neurological deficits. CN II-XII grossly intact. - PSYCHIATRIC: Awake, Alert and not oriented to place and time, knows her son's name. Appropriate mood and affect. - SKIN: No rashes or lesions. Warm. - LYMPH: No cervical lymphadenopathy. Objective Data Vital Signs Vital Signs: Vital Signs - 24 hr 12/11/22 21:47 12/12/22 05:58 12/12/22 08:00 Temperature 98.3 F 98.3 F Pulse Rate 103 H Respiratory Rate 16 12 Blood Pressure 133/46 L 137/58 L Pulse Oximetry 97 97 Oxygen Delivery Room Air 12/12/22 14:00 Temperature 99.1 F Pulse Rate 112 H Respiratory Rate 14 Blood Pressure 115/64 Pulse Oximetry 97 Oxygen Delivery Intake/Output Intake/Output: Intake & Output 12/09/22 12/10/22 12/11/22 12/12/22 23:59 23:59 23:59 23:59 Intake Total 2210 1124 285 790 Output Total 450 1400 1200 Balance 2210 081 -9225 -968 Meds/Results Medications: Active Medications Generic Name Dose Route Start Last Admin Trade Name Ramiroq PRN Reason Stop Dose Admin Acetaminophen 650 mg 12/09/22 14:44 12/11/22 17:44 Acetaminophen 325 Mg Tablet PO 650 mg Q6H PRN Administration Mild Pain (1-3) or Fever Amlodipine Besylate 10 mg 12/12/22 09:00 12/12/22 09:45 Amlodipine Besylate 5 Mg Tablet PO 10 mg DAILY SOHAIL Administration Collagenase 1 applic 12/10/22 09:00 07
[2022-12-12 20:22] VITALS: BP 140/60
[2022-12-12 22:00] VITALS: BP 140/60; PULSE 118; RESP 16; TEMP 37.1; O2SAT 96
[2022-12-13] MEDS: LEVOTHYROXINE SODIUM 88 MCG TABLET PO (05:56)
[2022-12-13 06:00] VITALS: BP 142/63; PULSE 95; RESP 16; TEMP 36.9; O2SAT 99
[2022-12-13] MEDS: DOCUSATE SODIUM LIQ 100 MG/10 ML UDC PO ×2 (07:35→20:44)
[2022-12-13] MEDS: FERROUS SULFATE LIQUID 325 MG/7.4 ML ELIXIR PO ×2 (07:35→17:03)
[2022-12-13] MEDS: PSYLLIUM POWDER PACKET 1 PACKET PO ×2 (07:35→20:44)
[2022-12-13] MEDS: ENOXAPARIN 30 MG/0.3 ML SYRINGE SUB-Q (07:36)
[2022-12-13] MEDS: PRIMIDONE 50 MG TABLET PO ×2 (07:36→20:44)
[2022-12-13] MEDS: hydrALAZINE HCL 50 MG TABLET PO ×2 (07:36→20:44)
[2022-12-13] MEDS: ACETAMINOPHEN 325 MG TABLET 650 MG PO (07:36)
[2022-12-13] MEDS: LOSARTAN POTASSIUM 100 MG TABLET PO (07:36)
[2022-12-13] MEDS: MULTIVITAMINS THERAPEUTIC TAB (*BKC) 1 TABLET PO (07:37)
[2022-12-13] MEDS: OPTI-GEN TAB 2 TABLET PO (07:37)
[2022-12-13] MEDS: COLLAGENASE OINT 30 GM TUBE 1 APPLIC TOPICAL (07:37)
[2022-12-13] MEDS: amLODIPine BESYLATE 5 MG TABLET 10 MG PO (07:37)
[2022-12-13] MEDS: SILVERGEL (ELTA) 45 ML 1 APPLIC TOPICAL (07:37)
[2022-12-13] MEDS: DEXTROSE 5%/0.9% SOD CHL 1,000 ML 100 ML IV CONT ×2 (11:00→20:43)
[2022-12-13 11:29] LABS: Hematocrit 25.4 % (37.0-47.0); Hemoglobin 7.9 g/dL (12.0-15.0); Mean Corpuscular HGB Conc 31.1 g/dl (32-36); Mean Corpuscular Hemoglobin 30.9 pg (26-34); Mean Corpuscular Volume 99.2 fl (80-100); Mean Platelet Volume 9.8 fl (7.4-10.4); Platelet Count Result 403 k/mm3 (150-375); Red Blood Count 2.56 M/mm3 (4.2-5.4); Red Cell Distribution Width 12.9 % (11.5-14.5); White Blood Count 7.1 K/mm3 (4.5-10.0)
[2022-12-13 11:42] LABS: Anion Gap 3 mmol/L (8-16); Blood Urea Nitrogen 68 mg/dL (7-17); Calcium 11.3 mg/dL (8.4-10.2); Carbon Dioxide 27 mmol/L (22-30); Chloride 103 mmol/L (98-107); Estimated CRCL calculation 22 ml/min; Estimated Glomerular Filt Rate 33; Glucose 116 mg/dL (65-110); Potassium 4.6 mmol/L (3.4-5.0); Sodium 133 mmol/L (137-145)
--- NOTE | 2022-12-13 12:26 | PC.NURSE ---
Attempted to give pt hydralazine due at 1300 which is required to be crushed and spoon fed to pt. Pt refused to wake up. Pt would not open her eyes. Pt whispered no several times and turned her head away. Unable to administer the med.
[2022-12-13 14:00] VITALS: BP 122/52; PULSE 83; RESP 16; TEMP 36.2; O2SAT 97
--- NOTE | 2022-12-13 15:31 | PM.IMPN ---
Progress Note: A&P Assessment and Plan (1) Fever: Code(s): R50.9 - Fever, unspecified Status: Acute (2) Urinary tract infection: Code(s): N39.0 - Urinary tract infection, site not specified Status: Acute (3) Chronic anemia: Code(s): D64.9 - Anemia, unspecified Status: Acute (4) Chronic kidney disease: Code(s): N18.9 - Chronic kidney disease, unspecified Status: Acute (5) Hypertension: Code(s): I10 - Essential (primary) hypertension Status: Acute (6) Hypothyroidism: Code(s): E03.9 - Hypothyroidism, unspecified Status: Acute (7) Dementia: Code(s): F03.90 - Unspecified dementia, unspecified severity, without behavioral disturbance, psychotic disturbance, mood disturbance, and anxiety Status: Acute (8) Acute renal failure: Code(s): N17.9 - Acute kidney failure, unspecified Status: Acute Plan Sepsis The patient presented to the emergency department via EMS for evaluation of elevated blood pressure and fever as per HPI. Labs, imaging, EKG, and all reports were personally reviewed. She has been afebrile since arrival and her white blood cell count and lactic acid level are well within normal limits. Her urinalysis is abnormal and given her fever she has been started on empiric antibiotics. She has a history of E coli ESBL UTI and she received a dose of ertapenem in the ED. Started ceftriaxone, UTI UA shows pyuria Urine culture grows Klebsiella pneumoniae and E coli also susceptible to ceftriaxone Continue ceftriaxone IV Chronic anemia and renal failure No obvious bleeding stable on review of previous labs. Blood pressures have been a bit elevated but not significantly so. Continue antihypertensives and monitor closely. TSH within normal limits. SOLO on CKD Kidney function is worse Likely secondary to UR infection And per orally intake Continue antibiotics Start D5 group home g up are Follow-up BMP Bacteremia Blood culture positive for for Staphylococcus epidermidis and hominis Discontinue vancomycin IV, continue ceftriaxone Repeated blood cultures no growth so far, pending final report Subjective Date/time seen: 12/13/22 15:31 Interval history: I saw on exam patient today, patient feels generally weak. Patient is lethargic. No new issue even overnight, Patient is afebrile. Patient is a per orally intake, kidney function is worse Exam Narrative: GENERAL: in no acute distress. Lethargic - EYES: EOMI. Anicteric. - HENT: Moist mucous membranes. - LUNGS: Clear to auscultation bilaterally, no wheezing, rhonchi, or rales. - CARDIOVASCULAR: Regular rate and rhythm. No murmur. No JVD. - ABDOMEN: Soft, non-tender and non-distended. No palpable masses. - EXTREMITIES: General weakness no edema. Peripheral pulses 2+. Non-tender. - NEUROLOGIC: No focal neurological deficits. CN II-XII grossly intact. - PSYCHIATRIC: Awake, Alert and not oriented to place and time, knows her son's name. Appropriate mood and affect. - SKIN: No rashes or lesions. Warm. - LYMPH: No cervical lymphadenopathy. Objective Data Vital Signs Vital Signs: Vital Signs - 24 hr 12/12/22 20:22 12/12/22 22:00 12/13/22 06:00 Temperature 98.7 F 98.5 F Pulse Rate 118 H 95 Respiratory Rate 16 16 Blood Pressure 140/60 140/60 142/63 H Pulse Oximetry 96 99 Oxygen Delivery 12/13/22 08:00 12/13/22 14:00 Temperature 97.2 F L Pulse Rate 83 Respiratory Rate 16 Blood Pressure 122/52 L Pulse Oximetry 97 Oxygen Delivery Room Air Intake/Output Intake/Output: Intake & Output 12/10/22 12/11/22 12/12/22 12/13/22 23:59 23:59 23:59 23:59 Intake Total 9868 705 1998 640 Output Total 450 1400 5600 400 Balance 974 -0078 -225 240 Meds/Results Medications: Active Medications Generic Name Dose Route Start Last Admin Trade Name Ramiroq PRN Reason Stop Dose Admin Acetaminophen 650 mg 12/09/22 14:44 12/13/22 07
[2022-12-13 20:55] VITALS: BP 141/63; PULSE 101; RESP 12; TEMP 35.6; O2SAT 98
[2022-12-14] MEDS: DEXTROSE 5%/0.9% SOD CHL 1,000 ML 100 ML IV CONT ×2 (05:42→16:27)
[2022-12-14] MEDS: LEVOTHYROXINE SODIUM 88 MCG TABLET PO (05:43)
[2022-12-14 06:00] VITALS: BP 146/78; PULSE 92; RESP 18; TEMP 36.9; O2SAT 92
[2022-12-14 06:11] LABS: Hematocrit 22.8 % (37.0-47.0); Mean Corpuscular HGB Conc 30.3 g/dl (32-36); Mean Corpuscular Hemoglobin 30.7 pg (26-34); Mean Corpuscular Volume 101.3 fl (80-100); Mean Platelet Volume 10.1 fl (7.4-10.4); Platelet Count Result 367 k/mm3 (150-375); Red Blood Count 2.25 M/mm3 (4.2-5.4); Red Cell Distribution Width 12.7 % (11.5-14.5); White Blood Count 5.7 K/mm3 (4.5-10.0)
[2022-12-14 06:14] LABS: Hemoglobin 6.9 g/dL (12.0-15.0)
[2022-12-14 06:21] LABS: Anion Gap 2 mmol/L (8-16); Blood Urea Nitrogen 72 mg/dL (7-17); Calcium 10.5 mg/dL (8.4-10.2); Carbon Dioxide 26 mmol/L (22-30); Chloride 107 mmol/L (98-107); Estimated CRCL calculation 24 ml/min; Estimated Glomerular Filt Rate 36; Glucose 105 mg/dL (65-110); Potassium 4.3 mmol/L (3.4-5.0); Sodium 135 mmol/L (137-145)
--- NOTE | 2022-12-14 07:55 | PM.IMPN ---
Progress Note: A&P Assessment and Plan (1) Fever: Code(s): R50.9 - Fever, unspecified Status: Acute (2) Urinary tract infection: Code(s): N39.0 - Urinary tract infection, site not specified Status: Acute (3) Chronic anemia: Code(s): D64.9 - Anemia, unspecified Status: Acute (4) Chronic kidney disease: Code(s): N18.9 - Chronic kidney disease, unspecified Status: Acute (5) Hypertension: Code(s): I10 - Essential (primary) hypertension Status: Acute (6) Hypothyroidism: Code(s): E03.9 - Hypothyroidism, unspecified Status: Acute (7) Dementia: Code(s): F03.90 - Unspecified dementia, unspecified severity, without behavioral disturbance, psychotic disturbance, mood disturbance, and anxiety Status: Acute (8) Acute renal failure: Code(s): N17.9 - Acute kidney failure, unspecified Status: Acute (9) Fecal impaction: Code(s): K56.41 - Fecal impaction Status: Acute (10) Gallstone: Code(s): K80.20 - Calculus of gallbladder without cholecystitis without obstruction Status: Acute Plan Sepsis The patient presented to the emergency department via EMS for evaluation of elevated blood pressure and fever as per HPI. Labs, imaging, EKG, and all reports were personally reviewed. She has been afebrile since arrival and her white blood cell count and lactic acid level are well within normal limits. Her urinalysis is abnormal and given her fever she has been started on empiric antibiotics. She has a history of E coli ESBL UTI and she received a dose of ertapenem in the ED. Started ceftriaxone, UTI UA shows pyuria Urine culture grows Klebsiella pneumoniae and E coli also susceptible to ceftriaxone Continue ceftriaxone IV Chronic anemia and renal failure No obvious bleeding Repeated hemoglobin, hemoglobin close to baseline CT abdomen abdomen pelvis and does reveals intra-abdominal hematoma Follow-up CBC Blood pressures have been a bit elevated but not significantly so. Continue antihypertensives and monitor closely. TSH within normal limits. SOLO on CKD Kidney function is worse Likely secondary to UR infection And per orally intake Continue antibiotics Start [facility] g up are Follow-up BMP Bacteremia Blood culture positive for for Staphylococcus epidermidis and hominis Discontinue vancomycin IV, continue ceftriaxone Repeated blood cultures no growth so far, pending final report Fecal impaction and constipation Cannot provide GoLYTELY, patient has a trouble swallowing large fluid. Consult GI for evaluation for treatment Cholelithiasis and distended gallbladder May have acute cholecystitis. Patient is on ceftriaxone IV, add Flagyl Consult general surgeon for evaluation treatment Subjective Date/time seen: 12/14/22 07:55 Interval history: I saw on exam patient today, patient feels generally weak. Patient is lethargic. No new issue even overnight, Patient is afebrile. Patient has a poor intake, kidney function is worse. Has received fluid resuscitation, kidney function is improving, hemoglobin 6.9 in the morning, repeat hemoglobin 7.5, close to baseline. No obvious source of active bleeding Exam Narrative: GENERAL: in no acute distress. Lethargic - EYES: EOMI. Anicteric. - HENT: Moist mucous membranes. - LUNGS: Clear to auscultation bilaterally, no wheezing, rhonchi, or rales. - CARDIOVASCULAR: Regular rate and rhythm. No murmur. No JVD. - ABDOMEN: Soft, non-tender and non-distended. No palpable masses. - EXTREMITIES: General weakness no edema. Peripheral pulses 2+. Non-tender. - NEUROLOGIC: No focal neurological deficits. CN II-XII grossly intact. - PSYCHIATRIC: Awake, Alert and not oriented to place and time, knows her son's name. Appropriate mood and affect. - SKIN: No rashes or lesions. Warm. - LYMPH: No cervical lymphadenopathy. Objective Data Vital Signs Vital Signs:
[2022-12-14 08:22] LABS: Hematocrit 24.2 % (37.0-47.0); Hemoglobin 7.5 g/dL (12.0-15.0); Mean Corpuscular Hemoglobin 30.9 pg (26-34); Mean Corpuscular Volume 99.6 fl (80-100); Platelet Count Result 392 k/mm3 (150-375); Red Blood Count 2.43 M/mm3 (4.2-5.4); Red Cell Distribution Width 12.8 % (11.5-14.5); White Blood Count 5.9 K/mm3 (4.5-10.0)
[2022-12-14 08:32] LABS: Iron 49 ug/dL (37-170)
[2022-12-14 08:41] LABS: Percent Iron Saturation 25 % (20-50)
[2022-12-14] MEDS: ENOXAPARIN 30 MG/0.3 ML SYRINGE SUB-Q (09:10)
[2022-12-14] MEDS: DOCUSATE SODIUM LIQ 100 MG/10 ML UDC PO ×2 (09:10→20:40)
[2022-12-14] MEDS: FERROUS SULFATE LIQUID 325 MG/7.4 ML ELIXIR PO ×2 (09:10→16:28)
[2022-12-14] MEDS: PSYLLIUM POWDER PACKET 1 PACKET PO ×2 (09:10→20:40)
[2022-12-14] MEDS: LOSARTAN POTASSIUM 100 MG TABLET PO (09:11)
[2022-12-14] MEDS: COLLAGENASE OINT 30 GM TUBE 1 APPLIC TOPICAL (09:11)
[2022-12-14] MEDS: hydrALAZINE HCL 50 MG TABLET PO ×3 (09:11→20:40)
[2022-12-14] MEDS: SILVERGEL (ELTA) 45 ML 1 APPLIC TOPICAL (09:11)
[2022-12-14] MEDS: PRIMIDONE 50 MG TABLET PO ×2 (09:11→20:40)
[2022-12-14] MEDS: OPTI-GEN TAB 2 TABLET PO (09:11)
[2022-12-14] MEDS: MULTIVITAMINS THERAPEUTIC TAB (*BKC) 1 TABLET PO (09:11)
[2022-12-14] MEDS: amLODIPine BESYLATE 5 MG TABLET 10 MG PO (09:11)
[2022-12-14] MEDS: SODIUM CHLORIDE 0.9% IV 250 ML 30 ML IV CONT (09:12)
[2022-12-14 10:12] LABS: IFOB Positive Control Positive; Immunochemical Fecal Occult Bl Positive (N)
--- NOTE | 2022-12-14 11:12 | PCNFU ---
Nutrition Follow-Up Complete: Increased Protein needs as related to wounds as evidenced by unstageable pressure ulcer reported. Goal:Adequate Intake of at least 75% of meals/supplements Pt current nutrition is Heart healthy, pureed level 4, Ensure compact BID, SHARON BID. Nutrition recommendation: Encourage po intake Last recorded weight is 76.5 kg. Bowel Motility: + BM 12/14 Labs Reviewed: Hgb:7.5, HCT:24.2, NA:135, BUN:72, Cr:1.4 Meds Noted: lovenox, colace Skin: unstageable L heel, R heel Additional Notes: Pt continues on a pureed heart healthy diet, intake has been poor, but last meals charted are improved. Continue to encourage po intake of meals and supplements. RD will montior weight, labs, oral intake,skin every 5 days.
[2022-12-14 14:00] VITALS: BP 139/64; PULSE 98; RESP 12; TEMP 36.4; O2SAT 96
[2022-12-14] MEDS: metroNIDAZOLE 500 MG/ISO 100ML 500 MG/100 ML BAG 100 MG IVPB (16:27)
--- NOTE | 2022-12-14 18:31 | PC.NURSE ---
The UNIT REACTOR OPERATOR informed me that Pt's daughter, PARMINDER, was assisting with cleaning pt up from an incontinent BM when it became obvious that pt was impacted. Pt's daughter then proceed to insert her finger into pt's rectum and scoop the feces out. Pt's daughter did this several times eventually causing pt to begin to bleed. Pt's daughter stopped when pt began to bleed.
--- NOTE | 2022-12-14 18:33 | PC.NURSE ---
Pt's daughter/POA works for Dr. Palumbo and will be working out of the [facility] physician's office on 12/15/22 and requests that she be contacted when the GI consult and surgery consult see pt.
[2022-12-14] MEDS: MINERAL OIL 30 ML UDC 15 ML PO (20:39)
[2022-12-14 22:00] VITALS: BP 144/58; PULSE 92; RESP 12; TEMP 36.3; O2SAT 97
[2022-12-15] MEDS: metroNIDAZOLE 500 MG/ISO 100ML 500 MG/100 ML BAG 100 MG IVPB (00:30)
[2022-12-15] MEDS: DEXTROSE 5%/0.9% SOD CHL 1,000 ML 100 ML IV CONT (02:12)
[2022-12-15] MEDS: LEVOTHYROXINE SODIUM 88 MCG TABLET PO (05:59)
[2022-12-15 06:00] VITALS: BP 169/70; PULSE 89; RESP 20; TEMP 36.8; O2SAT 100
[2022-12-15 08:00] VITALS: O2SAT 96
[2022-12-15] MEDS: LOSARTAN POTASSIUM 100 MG TABLET PO (09:43)
[2022-12-15] MEDS: hydrALAZINE HCL 50 MG TABLET PO ×3 (09:43→20:54)
[2022-12-15] MEDS: OPTI-GEN TAB 2 TABLET PO (09:43)
[2022-12-15] MEDS: DOCUSATE SODIUM LIQ 100 MG/10 ML UDC PO ×2 (09:44→20:32)
[2022-12-15] MEDS: amLODIPine BESYLATE 5 MG TABLET 10 MG PO (09:44)
[2022-12-15] MEDS: FERROUS SULFATE LIQUID 325 MG/7.4 ML ELIXIR PO ×2 (09:44→17:20)
[2022-12-15] MEDS: PRIMIDONE 50 MG TABLET PO ×2 (09:44→20:34)
[2022-12-15] MEDS: MULTIVITAMINS THERAPEUTIC TAB (*BKC) 1 TABLET PO (09:44)
[2022-12-15] MEDS: ENOXAPARIN 30 MG/0.3 ML SYRINGE SUB-Q (09:45)
[2022-12-15] MEDS: PSYLLIUM POWDER PACKET 1 PACKET PO ×2 (09:45→20:33)
[2022-12-15] MEDS: COLLAGENASE OINT 30 GM TUBE 1 APPLIC TOPICAL (10:06)
[2022-12-15] MEDS: SILVERGEL (ELTA) 45 ML 1 APPLIC TOPICAL (10:06)
[2022-12-15] MEDS: MINERAL OIL 30 ML UDC 15 ML PO ×2 (12:10→20:32)
--- NOTE | 2022-12-15 13:19 | PM.IMPN ---
Progress Note: A&P Assessment and Plan (1) Fever: Code(s): R50.9 - Fever, unspecified Status: Acute (2) Urinary tract infection: Code(s): N39.0 - Urinary tract infection, site not specified Status: Acute (3) Chronic anemia: Code(s): D64.9 - Anemia, unspecified Status: Acute (4) Chronic kidney disease: Code(s): N18.9 - Chronic kidney disease, unspecified Status: Acute (5) Hypertension: Code(s): I10 - Essential (primary) hypertension Status: Acute (6) Hypothyroidism: Code(s): E03.9 - Hypothyroidism, unspecified Status: Acute (7) Dementia: Code(s): F03.90 - Unspecified dementia, unspecified severity, without behavioral disturbance, psychotic disturbance, mood disturbance, and anxiety Status: Acute (8) Acute renal failure: Code(s): N17.9 - Acute kidney failure, unspecified Status: Acute (9) Fecal impaction: Code(s): K56.41 - Fecal impaction Status: Acute (10) Gallstone: Code(s): K80.20 - Calculus of gallbladder without cholecystitis without obstruction Status: Acute Plan Sepsis The patient presented to the emergency department via EMS for evaluation of elevated blood pressure and fever as per HPI. Labs, imaging, EKG, and all reports were personally reviewed. She has been afebrile since arrival and her white blood cell count and lactic acid level are well within normal limits. Her urinalysis is abnormal and given her fever she has been started on empiric antibiotics. She has a history of E coli ESBL UTI and she received a dose of ertapenem in the ED. Started ceftriaxone, Metabolic encephalopathy Pt appears confused will continue to treat UTI and watch for improvement Pt may benefit from placement I will consult neurology for confusion UTI UA shows pyuria Urine culture grows Klebsiella pneumoniae and E coli also susceptible to ceftriaxone Continue ceftriaxone IV Chronic anemia and renal failure No obvious bleeding Repeated hemoglobin, hemoglobin close to baseline CT abdomen abdomen pelvis and does reveals intra-abdominal hematoma Follow-up CBC Blood pressures have been a bit elevated but not significantly so. Continue antihypertensives and monitor closely. TSH within normal limits. SOLO on CKD Kidney function is worse Likely secondary to UR infection And per orally intake Continue antibiotics Start [facility] g up are Follow-up BMP Bacteremia Blood culture positive for for Staphylococcus epidermidis and hominis Discontinue vancomycin IV, continue ceftriaxone Repeated blood cultures no growth so far, pending final report Fecal impaction and constipation Cannot provide GoLYTELY, patient has a trouble swallowing large fluid. Consult GI for evaluation for treatment Cholelithiasis and distended gallbladder May have acute cholecystitis. Patient is on ceftriaxone IV, add Flagyl Consult general surgeon for evaluation treatment Subjective Date/time seen: 12/15/22 13:19 Interval history: Pt admitted with uti and confusion Pt having fevers yesterday no fever today but still appears very confused Disoriented x3 Review of Systems Review of Systems: Confusion Exam Narrative: GENERAL: Confusion - HENT: Moist mucous membranes. - LUNGS: Clear to auscultation bilaterally, no wheezing, rhonchi, or rales. - CARDIOVASCULAR: Regular rate and rhythm. No murmur. No JVD. - ABDOMEN: Soft, non-tender and non-distended. No palpable masses. - EXTREMITIES: General weakness no edema. Peripheral pulses 2+. Non-tender. - NEUROLOGIC: No focal neurological deficits. CN II-XII grossly intact. - PSYCHIATRIC: Awake, Alert and not oriented to place and time, knows her son's name. Appropriate mood and affect. - SKIN: No rashes or lesions. Warm. - LYMPH: No cervical lymphadenopathy. Objective Data Vital Signs Vital Signs: Vital Signs - 24 hr 12/14/22 14:00 12/14/22
--- NOTE | 2022-12-15 13:33 | WPDGICN ---
Assessment and Plan Assessment and plan (1) Fecal impaction: Code(s): K56.41 - Fecal impaction Status: Acute Assessment and Plan: treated medically large amount of soft stool has been removed today, she is not impacted anymore continue with medical support, laxatives favor conservative given advanced age and comorbidities, no plan for colonoscopy unless any changes in condition (2) Urinary tract infection: Code(s): N39.0 - Urinary tract infection, site not specified Status: Acute Assessment and Plan: by primary (3) Chronic kidney disease: Code(s): N18.9 - Chronic kidney disease, unspecified Status: Acute (4) Chronic anemia: Code(s): D64.9 - Anemia, unspecified Status: Acute Assessment and Plan: brown stool, no signs of bleeding monitor (5) Gallstone: Code(s): K80.20 - Calculus of gallbladder without cholecystitis without obstruction Status: Acute Assessment and Plan: abdominal exam is benign monitor (6) Dementia: Code(s): F03.90 - Unspecified dementia, unspecified severity, without behavioral disturbance, psychotic disturbance, mood disturbance, and anxiety Status: Acute (7) Metabolic encephalopathy: Code(s): G93.41 - Metabolic encephalopathy Status: Acute Assessment and Plan: she is confused GI Consult Note Consult date/time: 12/15/22 13:33 Reason for consult: fecal impaction HPI: Alva Paulson is a 87 year old female with history of dementia, hypertension, CKD, and ESBL E coli urinary tract infection who presented to the emergency department via EMS for evaluation of fever and high blood pressure few days ago. The patient is very hard of hearing and also poor historian. She had CT scan- reviewed and showed No intra-abdominal hemorrhage. Fecal impaction and constipation. Cholelithiasis and distended gallbladder. She has been treated with laxatives and stool softeners, denies abdominal pain or nausea. She seems to be comfortable. 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 Dementia History of ESBL E. coli infection Hyperlipidemia Hypertension Hypothyroidism Metabolic encephalopathy Surgical History Surgical History (Updated 12/09/22 @ 14:36 by Janelle Tatum PA-C) History of arthroplasty of right shoulder History of tonsillectomy and adenoidectomy Family History Family History Father Cardiac abnormality Daughter Atrial fibrillation Social History Social History (Updated 12/09/22 @ 14:37 by Janelle Tatum PA-C) Social History: Healthcare power of commercial real estate attorney: Eneida Conner, daughter. Code status: Full code. Smoking status: Never smoker Second hand tobacco smoke exposure: No Alcohol intake: never Substance use: never Substance use type: does not use Additional living arrangements comments: [facility]. Spiritual care concerns: No Meds Home Medications and Allergies Home Medications Medication Instructions Recorded Confirmed Type ferrous sulfate 325 mg PO BID 09/12/22 12/09/22 History Adults Multivitamin 1 tablet PO DAILY 09/14/22 12/09/22 History PreserVision AREDS 2 cap PO DAILY 09/14/22 12/09/22 History Procardia XL 90 mg PO DAILY 09/14/22 12/09/22 History Synthroid
[2022-12-15 14:00] VITALS: BP 140/63; PULSE 104; RESP 18; TEMP 36.1; O2SAT 97
--- NOTE | 2022-12-15 16:47 | PM.CNGS ---
Assessment and Plan Assessment and plan (1) Abnormal computerized tomography of biliary tract: Code(s): R93.2 - Abnormal findings on diagnostic imaging of liver and biliary tract Status: Chronic Assessment and Plan: Gallstones and distended gallbladder but no signs of cholecystitis. Patient does seem to be eating adequate amounts. Clinically it does not appear she has cholecystitis either acute or chronic. Thank you for asking us to see this patient in consultation. (2) Fecal impaction: Code(s): K56.41 - Fecal impaction Status: Chronic Assessment and Plan: Had large bowel movement today. Has been on Metamucil mineral oil and MiraLax. Hopefully has resolved. (3) Urinary tract infection: Code(s): N39.0 - Urinary tract infection, site not specified Status: Acute Assessment and Plan: Klebsiella and E coli but no ESBL. (4) Dementia: Code(s): F03.90 - Unspecified dementia, unspecified severity, without behavioral disturbance, psychotic disturbance, mood disturbance, and anxiety Status: Chronic (5) Tremor: Code(s): R25.1 - Tremor, unspecified Status: Acute Assessment and Plan: Left arm tremor noted. Etiology not clear to me. History of Present Illness Consult details Consult date: 12/15/22 Reason for consult: gallstones Requesting physician: Triston Salazar MD Narrative: Patient is an 87-year-old woman with dementia and a history of ESBL UTI's. She came in 6 days ago with a low-grade fever, elevated blood pressure, and a slight headache. She was judged to have a urinary tract infection and urine cultures grew both Klebsiella and E coli but did not really show any resistant organisms. She had 1 set of blood cultures out of 2 that were positive. Interestingly these showed Staph hominis and Staph epidermidis. The blood cultures were positive in 1/2 that day and none were positive the following day. She was treated with antibiotics but had a low hemoglobin and hematocrit. CT scan of the chest abdomen and pelvis was done yesterday for the indication of hemorrhage. There was no sign of intra-abdominal bleeding but she did have a fecal impaction. She was also noted to have gallstones and a distended gallbladder. No thickened gallbladder wall or pericholecystic inflammatory changes or fluid were noted to suggest cholecystitis. Patient has been eating adequately about every other day. She is very hard of hearing. She tells me that her abdomen hurts in the umbilical area and has hurt while she has been here. It does not her while she is eating or after eating but she is just not very hungry. The mid abdominal pain is not severe. She is seen now in consultation regarding the abnormal CT scan of the gallbladder. Review of Systems Review of Systems: ROS unobtainable: Yes unobtainable due to medical condition (Dementia) [facility] Past Medical History Medical History Arthritis Benign essential tremor Chronic anemia Chronic kidney disease Stage 3 to 4, baseline creatinine is about 1.60. Dementia History of ESBL E. coli infection Hyperlipidemia Hypertension Hypothyroidism Metabolic encephalopathy Surgical History Surgical History History of arthroplasty of right shoulder History of tonsillectomy and adenoidectomy Family History Family History Father Cardiac abnormality Daughter Atrial fibrillation Social History Social History Social History: Healthcare power of state attorney: Eneida KhurramTerrell, daughter. Code status: Full code. Smoking status: Never smoker Second hand tobacco smoke exposure: No Alcohol intake: never Substance use: never Substance use type: does not use Additional living arrangements comments: [facility]
[2022-12-15] MEDS: AMOXICILLIN/CLAVULANATE K 500-125 MG TAB 1 TABLET PO (20:33)
[2022-12-15 21:00] VITALS: BP 132/59; PULSE 104; RESP 18; TEMP 37.1; O2SAT 96
[2022-12-16 04:37] VITALS: BP 158/72; PULSE 98; RESP 16; TEMP 36.6; O2SAT 95
[2022-12-16] MEDS: LEVOTHYROXINE SODIUM 88 MCG TABLET PO (05:28)
[2022-12-16 06:47] LABS: Hematocrit 25.1 % (37.0-47.0); Hemoglobin 7.8 g/dL (12.0-15.0); Mean Corpuscular HGB Conc 31.1 g/dl (32-36); Mean Corpuscular Hemoglobin 30.6 pg (26-34); Mean Corpuscular Volume 98.4 fl (80-100); Mean Platelet Volume 9.8 fl (7.4-10.4); Platelet Count Result 480 k/mm3 (150-375); Red Blood Count 2.55 M/mm3 (4.2-5.4); Red Cell Distribution Width 12.6 % (11.5-14.5); White Blood Count 5.8 K/mm3 (4.5-10.0)
[2022-12-16 06:53] LABS: Anion Gap -1 mmol/L (8-16); Blood Urea Nitrogen 58 mg/dL (7-17); Calcium 11.3 mg/dL (8.4-10.2); Carbon Dioxide 28 mmol/L (22-30); Chloride 107 mmol/L (98-107); Estimated CRCL calculation 28 ml/min; Estimated Glomerular Filt Rate 42; Glucose 90 mg/dL (65-110); Potassium 4.3 mmol/L (3.4-5.0); Sodium 134 mmol/L (137-145)
[2022-12-16] MEDS: MULTIVITAMINS THERAPEUTIC TAB (*BKC) 1 TABLET PO (09:14)
[2022-12-16] MEDS: OPTI-GEN TAB 2 TABLET PO (09:14)
[2022-12-16] MEDS: FERROUS SULFATE LIQUID 325 MG/7.4 ML ELIXIR PO ×2 (09:14→17:34)
[2022-12-16] MEDS: hydrALAZINE HCL 50 MG TABLET PO ×3 (09:15→21:29)
[2022-12-16] MEDS: PRIMIDONE 50 MG TABLET PO ×2 (09:15→21:29)
[2022-12-16] MEDS: amLODIPine BESYLATE 5 MG TABLET 10 MG PO (09:15)
--- NOTE | 2022-12-16 09:15 | PCPTNOTE ---
Pt is a long-term resident who is a opal lift/wheelchair bound (dependent) at baseline. Spoke with hospitalist who OK the DC of PT orders. RN aware.
[2022-12-16] MEDS: MINERAL OIL 30 ML UDC 15 ML PO ×2 (09:16→21:29)
[2022-12-16] MEDS: DOCUSATE SODIUM LIQ 100 MG/10 ML UDC PO ×2 (09:16→21:29)
[2022-12-16] MEDS: PSYLLIUM POWDER PACKET 1 PACKET PO ×2 (09:16→21:29)
[2022-12-16] MEDS: ENOXAPARIN 30 MG/0.3 ML SYRINGE SUB-Q (09:16)
[2022-12-16] MEDS: LOSARTAN POTASSIUM 100 MG TABLET PO (09:16)
[2022-12-16] MEDS: SILVERGEL (ELTA) 45 ML 1 APPLIC TOPICAL (09:17)
[2022-12-16] MEDS: COLLAGENASE OINT 30 GM TUBE 1 APPLIC TOPICAL (09:17)
[2022-12-16] MEDS: AMOXICILLIN/CLAVULANATE K 500-125 MG TAB 1 TABLET PO (09:19)
--- NOTE | 2022-12-16 11:05 | WPDNEURCNPN ---
Assessment and Plan Assessment and plan (1) Dementia: Qualifiers: Dementia type: Alzheimer's Code(s): F03.90 - Unspecified dementia, unspecified severity, without behavioral disturbance, psychotic disturbance, mood disturbance, and anxiety Status: Chronic Plan 1. Hypertension 2. UTI 3. Dementia 4. Treatment continued SI Consult date: 12/16/22 HPI: Alva Paulson is a 87 year old female admitted to the hospital through the emergency room where she was brought with complaints of fever and hypotension and was being awake alert and oriented only 1-2 times patient was transferred to the ER from the group home with information that her blood pressure was 220/120 and temp patient was 100.2 patient had been taking multiple. On initial evaluation in the emergency room she was found to have normal white loose signs was blood pressure 152/90 her routine labs were normal, and subsequently she has been documented to have anemia elevated BUN positive stool for occult blood and she was negative for influenza and RSV and SARS, x-ray chest was negative, CT scan of the head was negative and CT of the abdomen chest revealed only cholelithiasis and distended gallbladder, she is a never a smoker by history and never alcohol intake, she has been seen by the peoplesoft developer as well and general surgeon, patient carries the diagnosis of underlying dementia Review of Systems Review of Systems: All systems reviewed & are unremarkable except as noted in HPI and below PMFSH Past Medical History Medical History Arthritis Benign essential tremor Chronic anemia Chronic kidney disease Stage 3 to 4, baseline creatinine is about 1.60. Dementia History of ESBL E. coli infection Hyperlipidemia Hypertension Hypothyroidism Metabolic encephalopathy Surgical History Surgical History History of arthroplasty of right shoulder History of tonsillectomy and adenoidectomy Family History Family History Father Cardiac abnormality Daughter Atrial fibrillation Social History Social History Social History: Healthcare power of cook ice cream: Eneida Conner, daughter. Code status: Full code. Smoking status: Never smoker Second hand tobacco smoke exposure: No Alcohol intake: never Substance use: never Substance use type: does not use Additional living arrangements comments: [facility]. Spiritual care concerns: No Meds Home Medications and Allergies Home Medications Medication Instructions Recorded Confirmed Type ferrous sulfate 325 mg PO BID 09/12/22 12/09/22 History Adults Multivitamin 1 tablet PO DAILY 09/14/22 12/09/22 History PreserVision AREDS 2 cap PO DAILY 09/14/22 12/09/22 History Procardia XL 90 mg PO DAILY 09/14/22 12/09/22 History Synthroid 88 mcg PO DAILY 09/14/22 12/09/22 History hydralazine 50 mg PO 08,,09/14/22 12/09/22 History losartan 100 mg PO DAILY 09/14/22 12/09/22 History acetaminophen 325 mg tablet (Mapap 650 mg PO Q6H PRN Mild Pain (1-3) 09/27/22 12/09/22 Rx (acetaminophen)) Or Fever #30 tabs docusate sodium 100 mg capsule 100 mg PO Q12HR #60 caps 09/27/22 12/09/22 Rx polyethylene glycol 3350 17 gram 17 g PO QAM PRN Constipation #100 09/27/22 12/09/22 Rx oral powder packet (Miralax) ea psyllium husk (with sugar) 3.4 1 packet PO Q12HR #60 ea 09/27/22 12/09/22 Rx gram oral powder packet (Metamucil (with sugar)) collagenase clostridium histo. 250 1 applic topical DAILY 12/09/22 12/09/22 History unit/gram topical ointment (Santyl) levothyroxine 88 mcg tablet 88 mcg PO WEEKLY 12/09/22 12/09/22 History (Synthroid) primidone 50 mg tablet 50 mg PO Q12H 12/09/22 12/09/22 History Allergies Allergy/AdvReac Type Severity Reaction Status Date / Time ad
--- NOTE | 2022-12-16 12:59 | PM.IMPN ---
Progress Note: A&P Assessment and Plan (1) Abnormal computerized tomography of biliary tract: Code(s): R93.2 - Abnormal findings on diagnostic imaging of liver and biliary tract Status: Chronic (2) Metabolic encephalopathy: Code(s): G93.41 - Metabolic encephalopathy Status: Acute (3) Fecal impaction: Code(s): K56.41 - Fecal impaction Status: Chronic (4) Acute renal failure: Code(s): N17.9 - Acute kidney failure, unspecified Status: Acute (5) Hypothyroidism: Code(s): E03.9 - Hypothyroidism, unspecified Status: Acute (6) Dementia: Qualifiers: Dementia type: Alzheimer's Code(s): F03.90 - Unspecified dementia, unspecified severity, without behavioral disturbance, psychotic disturbance, mood disturbance, and anxiety Status: Chronic (7) Hypertension: Code(s): I10 - Essential (primary) hypertension Status: Acute (8) Urinary tract infection: Code(s): N39.0 - Urinary tract infection, site not specified Status: Acute (9) Chronic anemia: Code(s): D64.9 - Anemia, unspecified Status: Acute (10) Gallstone: Code(s): K80.20 - Calculus of gallbladder without cholecystitis without obstruction Status: Acute Plan Sepsis The patient presented to the emergency department via EMS for evaluation of elevated blood pressure and fever as per HPI. Labs, imaging, EKG, and all reports were personally reviewed. She has been afebrile since arrival and her white blood cell count and lactic acid level are well within normal limits. Her urinalysis is abnormal and given her fever she has been started on empiric antibiotics. She has a history of E coli ESBL UTI and she received a dose of ertapenem in the ED. Started ceftriaxone,Klebsiella and E coli but no ESBL. pt changed to oral ABX Metabolic encephalopathy Pt appears confused will continue to treat UTI and watch for improvement Pt may benefit from placement pt has underlying dementia UTI UA shows pyuria Urine culture grows Klebsiella pneumoniae and E coli also susceptible to ceftriaxone Continue ceftriaxone IV pt now changed to oral ABX Chronic anemia and renal failure No obvious bleeding Repeated hemoglobin, hemoglobin close to baseline CT abdomen abdomen pelvis and does reveals intra-abdominal hematoma Follow-up CBC Hb is 7 transfuse venofer x2 Blood pressures have been a bit elevated but not significantly so. Continue antihypertensives and monitor closely. TSH within normal limits. SOLO on CKD Kidney function is worse Likely secondary to UR infection And per orally intake Bacteremia Blood culture positive for for Staphylococcus epidermidis and hominis Discontinue vancomycin IV, continue ceftriaxone Repeated blood cultures no growth so far Fecal impaction and constipation Cannot provide GoLYTELY, patient has a trouble swallowing large fluid. Consult GI for evaluation for treatment, pt had bowel movement Cholelithiasis and distended gallbladder May have acute cholecystitis. not acute pt can be followed in surgery clinic later Subjective Date/time seen: 12/16/22 12:59 Interval history: Pt admitted with uti and confusion Pt still appears very confused likely due to dementia as per neurology note Disoriented x3 Pt had large bowel movement Pt is very anemic and sleepy today order venofer infusions x2 IV abx changed to oral Once medically stable DC back to [facility] hopefully in 1-2 days time PT seen by GI surgery and neurology in hospital Review of Systems Review of Systems: sleepy confused Exam Narrative: GENERAL: Confusion - HENT: Moist mucous membranes. - LUNGS: Clear to auscultation bilaterally, no wheezing, rhonchi, or rales. - CARDIOVASCULAR: Regular rate and rhythm. No murmur. No JVD. - ABDOMEN: Soft, non-tender and non-distended. No palpable masses. - EXTREMITIES: General weakness no ed
[2022-12-16 13:51] VITALS: BP 143/58; PULSE 102; RESP 20; TEMP 36.8; O2SAT 99
--- NOTE | 2022-12-16 15:03 | WPDGIPROGNO ---
Progress Note: A&P Assessment and Plan (1) Fecal impaction: Code(s): K56.41 - Fecal impaction Status: Chronic Assessment and Plan: resolved with medical treatment rectal exam was done yesterday and found large amount of soft stool that was removed and now she is having good BM will follow from afar (2) Metabolic encephalopathy: Code(s): G93.41 - Metabolic encephalopathy Status: Acute (3) Gallstone: Code(s): K80.20 - Calculus of gallbladder without cholecystitis without obstruction Status: Acute Assessment and Plan: no signs of cholecystitis (4) Dementia: Qualifiers: Dementia type: Alzheimer's Code(s): F03.90 - Unspecified dementia, unspecified severity, without behavioral disturbance, psychotic disturbance, mood disturbance, and anxiety Status: Chronic (5) Chronic kidney disease: Code(s): N18.9 - Chronic kidney disease, unspecified Status: Acute (6) Acute UTI: Code(s): N39.0 - Urinary tract infection, site not specified Status: Acute Assessment and Plan: on treatment Subjective Date/time seen: 12/16/22 15:03 Interval history: no changes per staff development coordinator, patient is resting comfortably. She had at least 3 BM today Review of Systems Review of Systems: All systems reviewed & are unremarkable except as noted in HPI and below Exam Const: General: comfortable and no acute distress Other: pleasant elderly, resting, confused HENMT: Face/Nose/Sinus: Normal nares present Eyes: General: appearance normal, both eyes and all related structures Neck: Neck: supple Resp: Auscultation: clear to auscultation bilaterally Cardio: Rate: regular rate Rhythm: regular rhythm GI: Inspection: non-distended GI Palp: Yes Soft to palpation and Yes Guarding due to palpation present (GI) Skin: General skin exam: normal color Neuro: Speech: normal speech Other: awake and alert, she is confused Extrem: General: normal to inspection Objective Data Vital Signs Vital Signs: Vital Signs - 24 hr 12/15/22 21:00 12/16/22 04:37 12/16/22 13:51 Temperature 98.7 F 97.9 F 98.2 F Pulse Rate 104 H 98 102 H Respiratory Rate 18 16 20 Blood Pressure 132/59 L 158/72 H 143/58 H Pulse Oximetry 96 95 99 Oxygen Delivery 12/16/22 08:00 Temperature Pulse Rate Respiratory Rate Blood Pressure Pulse Oximetry Oxygen Delivery Room Air Intake/Output Intake/Output: Intake & Output 12/13/22 12/14/22 12/15/22 12/16/22 23:59 23:59 23:59 23:59 Intake Total 2390 2150 4420 476 Output Total 900 1400 2500 800 Balance 2975 363 3123 -324 Meds/Results Medications: Active Medications Generic Name Dose Route Start Last Admin Trade Name Freq PRN Reason Stop Dose Admin Acetaminophen 650 mg 12/09/22 14:44 12/13/22 07:36 Acetaminophen 325 Mg Tablet PO 650 mg Q6H PRN Administration Mild Pain (1-3) or Fever Amlodipine Besylate 10 mg 12/12/22 09:00 12/16/22 09:15 Amlodipine Besylate 5 Mg Tablet PO 10 mg DAILY SOHAIL Administration Docusate Sodium 100 mg 12/12/22 09:00 12/16/22 09:16 Docusate Sodium Liq 100 Mg/10 Ml Udc PO 100 mg Q12HR SOHAIL Administration Enoxaparin Sodium 30 mg 12/10/22 09:00 12/16/22 09:16 Enoxaparin 30 Mg/0.3 Ml Syringe SUB-Q 30 mg DAILY SOHAIL Administration Ferrous Sulfate 325 mg 12/12/22 08:00 12/16/22 09:14 Ferrous Sulfate Liquid 325 Mg/7.4 Ml Elixir PO 325 mg BIDWM SOHAIL Administration Hydralazine HCl 50 mg 12/09/22 20:00 12/16/22 13:17 Hydralazine Hcl 50 Mg Tablet PO 01/08/23 19:59 50 mg 08,13,20 SOHAIL Administration Dextrose/Sodium Chloride 1,000 mls @ 100 mls/hr 12/13/22 10:50 12/15/22 12:50 Dextrose 5% Sodium Chloride 0.9% IV CONT Not Given .Q10H SOHAIL Iron Sucrose 100 mg/ Sodium 55 mls @ 220 mls/hr 12/17/22 09:00 Chloride IVPB 12/18/22 14:00 QAM SOHAIL Levothyroxine Sodium 88 mcg 12/10/22
[2022-12-16 20:00] VITALS: PULSE 100; RESP 18; O2SAT 96
[2022-12-16 20:59] VITALS: BP 130/81; PULSE 100; RESP 18; TEMP 37.6; O2SAT 96
[2022-12-17] MEDS: LEVOTHYROXINE SODIUM 88 MCG TABLET PO (05:37)
[2022-12-17 06:00] VITALS: BP 146/49; PULSE 85; RESP 18; TEMP 36.2; O2SAT 100
[2022-12-17] MEDS: DOCUSATE SODIUM LIQ 100 MG/10 ML UDC PO (09:14)
[2022-12-17] MEDS: MULTIVITAMINS THERAPEUTIC TAB (*BKC) 1 TABLET PO (09:14)
[2022-12-17] MEDS: amLODIPine BESYLATE 5 MG TABLET 10 MG PO (09:14)
[2022-12-17] MEDS: PRIMIDONE 50 MG TABLET PO (09:14)
[2022-12-17] MEDS: hydrALAZINE HCL 50 MG TABLET PO ×2 (09:14→13:32)
[2022-12-17] MEDS: FERROUS SULFATE LIQUID 325 MG/7.4 ML ELIXIR PO (09:15)
[2022-12-17] MEDS: LOSARTAN POTASSIUM 100 MG TABLET PO (09:15)
[2022-12-17] MEDS: MINERAL OIL 30 ML UDC 15 ML PO (09:15)
[2022-12-17] MEDS: PSYLLIUM POWDER PACKET 1 PACKET PO (09:15)
[2022-12-17] MEDS: ENOXAPARIN 30 MG/0.3 ML SYRINGE SUB-Q (09:15)
[2022-12-17] MEDS: OPTI-GEN TAB 2 TABLET PO (09:15)
[2022-12-17] MEDS: SILVERGEL (ELTA) 45 ML 1 APPLIC TOPICAL (09:28)
--- NOTE | 2022-12-17 10:59 | PM.DS ---
DS: Admitting Diagnosis Discharge Date 12/17/2022 Admitting Diagnosis UTI DS: Discharge Diagnosis Discharge Diagnosis (1) Metabolic encephalopathy: Code(s): G93.41 - Metabolic encephalopathy Status: Acute (2) Acute renal failure: Code(s): N17.9 - Acute kidney failure, unspecified Status: Acute (3) Chronic anemia: Code(s): D64.9 - Anemia, unspecified Status: Acute (4) Hypercalcemia: Code(s): E83.52 - Hypercalcemia Status: Acute DS: Summary Hospital Course Hospital Course: Sepsis The patient presented to the emergency department via EMS for evaluation of elevated blood pressure and fever as per HPI. Labs, imaging, EKG, and all reports were personally reviewed. She has been afebrile since arrival and her white blood cell count and lactic acid level are well within normal limits. Her urinalysis is abnormal and given her fever she has been started on empiric antibiotics.? She has a history of E coli ESBL UTI and she received a dose of ertapenem in the ED. Started ceftriaxone,Klebsiella and E coli but no ESBL. pt changed to oral ABX? Metabolic encephalopathy Pt appears to be at baseline pt has underlying dementia? UTI UA shows pyuria Urine culture grows Klebsiella pneumoniae and E coli also susceptible to ceftriaxone Continue ceftriaxone oral ABX? ?Chronic anemia and renal failure Iron studies suggest anemia of chronic disease Repeated hemoglobin, hemoglobin close to baseline CT abdomen abdomen pelvis and does reveals intra-abdominal hematoma Hypercalcemia Could be from dehydration versus multiple myeloma versus hypercalcemia of malignancy. Discussed with daughter. Will set up outpatient Nephrology follow-up. SOLO on CKD Patient only has 1 kidney. Kidney function is improving. Discontinue losartan Bacteremia Blood culture positive for for Staphylococcus epidermidis and hominis Discontinue vancomycin IV, continue ceftriaxone Repeated blood cultures no growth so far Cholelithiasis and distended gallbladder May have acute cholecystitis. not acute pt can be followed in surgery clinic later Time Spent with Patient Time attestation: Total time spent providing and/or coordinating discharge services: DS: Data Data Completed and Pending Labs on day of discharge: Labs from last 24 hours 12/16/22 05:42 Vitamin D 25-Hydroxy Pending Discharge Plan Discharge Consulting providers: Yakov Ramirez; Taran Powers Discharging Clinician: Curt Mcmahon Anticipated Discharge Date/Time: 12/17/22 10:56 Patient Disposition: SNF Activity: no preference Diet: heart healthy and renal Stand Alone Forms: General Discharge Information Follow-up/Referrals: Ramy Tucker MD [Physician] - Stone,RANDY Graham-NORMAN [Primary Care Provider] - Discharge Medications: Continued primidone 50 mg tablet 50 mg PO Q12H levothyroxine [Synthroid] 88 mcg Tablet 88 mcg PO WEEKLY Rx Instructions: pt takes 88mg daily, and an additional 88 mg on Wednesday Santyl 250 unit/gram Ointment 1 applic TOPICAL DAILY Rx Instructions: apply santyl and calcium alginate to left heel hydralazine 50 mg tablet 50 mg PO ,, Adults Multivitamin 1 tablet tablet 1 tablet PO DAILY PreserVision AREDS 2 CAP capsule 2 cap PO DAILY Procardia XL 90 MG tablet 90 mg PO DAILY Synthroid 88 MCG tablet 88 mcg PO DAILY acetaminophen [Mapap (acetaminophen)] 325 mg Tablet 650 mg PO Q6H PRN (Reason: Mild Pain (1-3) Or Fever) Qty: 30 0RF polyethylene glycol 3350 [Miralax] 17 gram Powder In Packet 17 g PO QAM PRN (Reason: Constipation) Qty: 100 0RF docusate sodium 100 mg Capsule 100 mg PO Q12HR Qty: 60 0RF Metamucil (with sugar) 3.4 gram Powder In Packet 1 packet PO Q12HR Qty: 60 0RF Changed ferrous sulfate 325 mg PO DAILY 30 Days Qty: 0 0RF Discontinued losartan 100 MG ta
[2022-12-17 12:27] LABS: Vitamin D 25 Hydroxy 20.2 ng/mL
[2022-12-17 14:00] VITALS: BP 148/67; PULSE 101; RESP 18; TEMP 36.1; O2SAT 97
[2022-12-17 14:34] LABS: SARS-CoV-2 RNA PCR Negative (Negative)
== END 2022-12-17 15:20 | DRG 871 ==
LOC: ANHED 07:03 → ANH3MEDSUR 07:33
PROVIDERS: Family Medicine; Hospitalist; Physician Assistant; Admitting Provider Internal Medicine; Emergency Provider Emergency Medicine; PCP Nurse Practitioner Family; Visit Provider Hospitalist
DX: A41.9 Sepsis, unspecified organism (principal); G93.41 Metabolic encephalopathy; N39.0 Urinary tract infection, site not specified; N17.9 Acute kidney failure, unspecified; N18.4 Chronic kidney disease, stage 4 (severe); K80.20 Calculus of gallbladder without cholecystitis without obstruction; E83.52 Hypercalcemia; F03.90 Unspecified dementia, unspecified severity, without behavioral disturbance, psychotic disturbance, mood disturbance, and anxiety; E03.9 Hypothyroidism, unspecified; B96.20 Unspecified Escherichia coli [E. coli] as the cause of diseases classified elsewhere; I12.9 Hypertensive chronic kidney disease with stage 1 through stage 4 chronic kidney disease, or unspecified chronic kidney disease; N18.9 Chronic kidney disease, unspecified; M19.90 Unspecified osteoarthritis, unspecified site; E78.5 Hyperlipidemia, unspecified; Z96.611 Presence of right artificial shoulder joint; B95.7 Other staphylococcus as the cause of diseases classified elsewhere; K59.00 Constipation, unspecified; E86.0 Dehydration; Z90.5 Acquired absence of kidney; D63.1 Anemia in chronic kidney disease; Z20.822 Contact with and (suspected) exposure to COVID-19
CPT/HCPCS: 36415; 70450; 71045; 71250; 74176; 80048; 80053; 81001; 82274; 82306; 82550; 82565; 82728; 83540; 83550; 83605; 83690; 83735; 83880; 84100; 84439; 84443; 84480; 84484; 85025; 85027; 85610; 85730; 86850; 86900; 86901; 86920; 87040; 87077; 87086; 87147; 87181; 87186; 87635; 87637; 92610; 93005; 96360; 99285; A9270; J0696; J1335; J1650; J1836; J3370; J7030; J7040; J7042; J7050

== ENCOUNTER 2024-02-01 11:11 | Emergency (ER) | payer OTHER, SELFPAY ==
--- NOTE | ~2024-02-01 | XR_ITS ---
EXAMINATION: XR chest 2V 02/01/2024 12:13 INDICATION: Weakness. Possible CVA. PROCEDURE: 2 view chest COMPARISON: 12/09/2022 FINDINGS: The lungs are clear. The cardiomediastinal silhouette is within normal limits. There are no pleural effusions. There is no pneumothorax suspected. IMPRESSION: 1: NO ACUTE CARDIOPULMONARY DISEASE. Reviewed, dictated and finalized at location B.
--- NOTE | ~2024-02-01 | CT_ITS ---
EXAMINATION: CT brain wo con DATE: 02/01/2024 13:56 INDICATION: Altered mental status TECHNIQUE: Computed tomography (CT) of the head was performed without intravenous contrast. Sagittal and coronal reconstructions were performed. The mA was adjusted according to patient size. Iterative reconstruction technique was employed. The dose-length product was 605.33 mGy-cm. COMPARISON: head CT dated 12/09/2022 FINDINGS: No acute intracranial hemorrhage, acute infarction or abnormal extra axial fluid collection. Symmetri c prominence of the sulci and subarachnoid spaces overlying the convexities consistent with moderate age-appropriate diffuse cerebral volume loss. Ventricles are normal and symmetric. No mass/mass effe ct. Changes of bilateral intraocular lens replacement. The orbits and mastoid air cells are normal. T here are some bubbly mucus in the dependent aspect of the bilateral sphenoid sinuses. IMPRESSION: 1. Normal aging brain with moderate diffuse volume loss and no evident acute intracranial process. 2. Bubbly mucus in the bilateral sphenoid sinuses. Correlate clinically for acute sinusitis. Reviewed, dictated and finalized at location A. IMPRESSION: 1. Normal aging brain with moderate diffuse volume loss and no evident acute in tracranial process. 2. Bubbly mucus in the bilateral sphenoid sinuses. Correlate clinically for acu te sinusitis.
[2024-02-01 11:13] VITALS: BP 155/89; PULSE 79; RESP 15; TEMP 36.3; O2SAT 97
[2024-02-01 11:24] VITALS: BP 155/89; PULSE 80; RESP 15; O2SAT 97
--- NOTE | 2024-02-01 11:26 | ECG_ITS ---
Test Date: 2024-02-01 11:30:57 Measurements Intervals [place] Rate: 77 P: 66 [place]: 121 QRS: 55 QRSD: 82 T: 63 QT: 393 QTc: 446 Interpretive Statements SINUS RHYTHM WITHIN NORMAL LIMITS No previous ECG available for comparison Electronically Signed On 02-01-2024 17:58:14 CDT by Milton Pretty M.D.
[2024-02-01 11:54] LABS: Basophils Percent Auto 0.6 % (0.2-1.2); Eosinophils Absolute Auto 0.3 K/mm3 (0-0.3); Eosinophils Percent Auto 3.9 % (0-4.4); Hemoglobin 10.5 g/dL (12.0-15.0); Immature Granulocyte Absolute 0.01 K/mm3 (0.00-0.031); Immature Granulocyte Percent A 0.2 % (0-0.5); Lymphocytes Absolute Auto 1.49 K/mm3 (0.9-3.2); Lymphocytes Percent Auto 22.4 % (18.3-44.2); Mean Corpuscular HGB Conc 31.8 g/dl (32-36); Mean Corpuscular Hemoglobin 31.6 pg (26-34); Mean Corpuscular Volume 99.4 fl (80-100); Mean Platelet Volume 10.4 fl (7.4-10.4); Monocytes Absolute Auto 0.6 K/mm3 (0.1-0.6); Monocytes Percent Auto 8.9 % (2.6-8.5); Neutrophils Absolute Auto 4.3 K/mm3 (1.3-6.7); Platelet Count Result 301 k/mm3 (150-375); Red Blood Count 3.32 M/mm3 (4.2-5.4); Red Cell Distribution Width 13.2 % (11.5-14.5); White Blood Count 6.6 K/mm3 (4.5-10.0)
[2024-02-01 12:08] LABS: Alanine Aminotransferase 15 U/L (6-35); Albumin Level 3.8 g/dL (3.5-5.1); Alkaline Phosphatase 85 U/L (38-126); Anion Gap 8 mmol/L (4-12); Aspartate Amino Transferase 25 U/L (14-36); Bilirubin,Total 0.1 mg/dL (0.2-1.3); Blood Urea Nitrogen 35 mg/dL (7-17); Calcium 9.6 mg/dL (8.4-10.2); Carbon Dioxide 26 mmol/L (22-30); Chloride 105 mmol/L (98-107); Estimated CRCL calculation 22 ml/min; Estimated Glomerular Filt Rate 33; Glucose 89 mg/dL (65-110); Potassium 4.8 mmol/L (3.4-5.0); Sodium 139 mmol/L (137-145)
--- NOTE | 2024-02-01 12:27 | ED.NEUROSD ---
HPI - Neuro Symptoms/Deficit General Chief Complaint: Neuro Symptoms/Deficit Stated Complaint: neuro Time Seen by Provider: 02/01/24 12:11 History of Present Illness HPI Narrative: 88 Year old female a history of hypothyroidism, hypertension, CKD presenting with an episode of possible altered mental status. Patient's daughter is at bedside and helps with the history. She received a call from the patient's nursing facility this morning stating they were concerned she was having a stroke. They were concerned that she had some garbled speech after she woke up from a nap. They think she may have had a bilateral facial droop. By the time the patient's daughter arrived, patient was at baseline but the ambulance was already on their way. Patient's daughter states that she thinks she slept poorly last night and was likely napping. No pain. Currently at neurologic baseline. Patient denies complaints other than feeling scared of being in the ER. Related Data Home Medications Medication Instructions Recorded Confirmed Adults Multivitamin 1 tablet PO DAILY 09/14/22 12/16/23 PreserVision AREDS 2 cap PO DAILY 09/14/22 12/16/23 Procardia XL 90 mg PO DAILY 09/14/22 12/16/23 Synthroid 88 mcg PO DAILY 09/14/22 12/16/23 hydralazine 50 mg PO 08,13,20 09/14/22 12/16/23 collagenase clostridium histo. 250 1 applic topical DAILY 12/09/22 12/16/23 unit/gram topical ointment (Santyl) levothyroxine 88 mcg tablet 88 mcg PO WEEKLY 12/09/22 12/16/23 (Synthroid) primidone 50 mg tablet 50 mg PO Q12H 12/09/22 12/16/23 Allergies Allergy/AdvReac Type Severity Reaction Status Date / Time adhesive tape Allergy Itching Verified 12/09/22 08:38 bacitracin Allergy Unknown Verified 12/09/22 08:38 [From Neosporin ([id number])] codeine Allergy Anaphylaxis Verified 12/09/22 08:38 gabapentin Allergy Unknown Verified 12/09/22 08:38 levofloxacin [From Levaquin] Allergy Unknown Verified 12/09/22 08:38 neomycin Allergy Unknown Verified 12/09/22 08:38 [From Neosporin ([id number])] polymyxin B Allergy Unknown Verified 12/09/22 08:38 [From Neosporin ([id number])] Sulfa (Sulfonamide Allergy Unknown Verified 12/09/22 08:38 Antibiotics) Review of Systems Review of Systems: All systems reviewed & are unremarkable except as noted in HPI and below PMFSH Past Medical History Medical History Arthritis Benign essential tremor Chronic anemia Chronic kidney disease Stage 3 to 4, baseline creatinine is about 1.60. Dementia History of ESBL E. coli infection Hyperlipidemia Hypertension Hypothyroidism Metabolic encephalopathy Surgical History Surgical History History of arthroplasty of right shoulder History of tonsillectomy and adenoidectomy Family History Family History Father Cardiac abnormality Daughter Atrial fibrillation Social History Social History Social History: Healthcare power of insurance defense attorney: Eneida Conner, daughter. Code status: Full code. Smoking status: Never smoker Second hand tobacco smoke exposure: No Alcohol intake: never Substance use: never Substance use type: does not use Additional living arrangements comments: [facility]. Spiritual care concerns: No Exam Narrative: GENERAL: Well-appearing, In no acute distress, pleasant and cooperative HEAD: Normocephalic, atraumatic. EYES: PERRLA and EOMI. ENT: Mucous membranes dry NECK: Supple. CHEST: Clear to auscultation. No respiratory distress. HEART: Regular rate and rhythm ABDOMEN: Soft, nontender, nondistended EXTREMITIES: right hand is chronically contracted, limited movement of the right arm which is chronic SKIN: Warm, dry, no rash. NEURO: alert and oriente
[2024-02-01 13:42] LABS: Add Urine Microscopic? YES; Appearance Urine Cloudy (Clear); Bacteria Urine 4+ /hpf; Bilirubin Urine Negative (Negative); Blood Urine Non-Hemolyzed Trace (Negative); Color Urine Yellow (Yellow); Glucose Urine UA Negative (Negative); Ketones Urine Negative (Negative); Leukocyte Esterase Ur 3+ LEU/UL (Negative); Nitrate Urine Positive (Negative); Protein Urine 1+ mg/dL (Negative); RBC Urine 0-2 /hpf (0-2); Squamous Epithelial Cell Urine None Seen /hpf (Few); Urobilinogen Urine 0.2 mg/dL (<2.0); WBC Urine >100 /hpf (0-3); pH Urine 7.5 (5.0-9.0)
[2024-02-01] MEDS: SODIUM CHLORIDE 0.9% IV 1,000 ML 999 ML IV CONT (14:40)
[2024-02-01] MEDS: cefTRIAXone 2 GM/NS 100 ML 2 GM/100 ML BAG IVPB (14:40)
[2024-02-01 17:30] VITALS: BP 143/80; PULSE 98; RESP 16; TEMP 37.1; O2SAT 96
[2024-02-01 18:11] VITALS: BP 137/74; PULSE 89; RESP 20; TEMP 37.2; O2SAT 99
== END 2024-02-01 18:14 ==
PROVIDERS: Student in an Organized Health Care Education/Training Program; Emergency Provider Emergency Medicine; PCP Nurse Practitioner Family
DX: N39.0 Urinary tract infection, site not specified (principal); F03.90 Unspecified dementia, unspecified severity, without behavioral disturbance, psychotic disturbance, mood disturbance, and anxiety; I12.9 Hypertensive chronic kidney disease with stage 1 through stage 4 chronic kidney disease, or unspecified chronic kidney disease; N18.4 Chronic kidney disease, stage 4 (severe); D64.9 Anemia, unspecified; E03.9 Hypothyroidism, unspecified; M19.90 Unspecified osteoarthritis, unspecified site; G93.41 Metabolic encephalopathy; Z96.611 Presence of right artificial shoulder joint; Z79.899 Other long term (current) drug therapy
CPT/HCPCS: 36415; 70450; 71046; 80053; 81001; 85025; 87086; 87088; 93005; 96365; 96366; 99284; J0696; J7030